=== PATIENT | female | born 1950 | race Caucasian/White ===

== ENCOUNTER → 2017-03-17 | Outpatient (CLI) | payer MEDICARE, BC ==
[2016-07-08 12:00] VITALS: BP 138/93
[~2017-03-17] MED LIST: AUBAGIO14 MG PO; B-121000 MCG PO; CALCIUM600 MG PO; CARDI-OMEGA1000 MG PO; CEFPODOXIME PR100 M1 PO; CEFPODOXIME PR100 MG PO; CELEXA 20MG20 MG/TA1 PO; CITALOPRAM HBR10 MG PO; CITALOPRAM10 MG PO; CITALOPRAM20 MG PO; CRANBERRY1000 MG PO; DITROPAN 5MG TAB5 MG PO; ESTRADIOL0.5 MG PO; FEXOFENADINE180 MG PO; GILENYA0.5 MG PO; GOOD SENSE OMEP20 MG PO; K-TAB20 MEQ PO; MIRTAZAPINE15 MG PO; MYRBETRIQ50 MG PO; NEURONTIN300 M1 PO; NEURONTIN300 MG PO; NORVASC 10MG10 MG PO; PHENERGAN25 MG RC; PREDNISONE20 M1 PO; PRELIEF333 M1 PO; TYLENOL PM EXT240 ML PO; [UNRECOGNIZED DRUG - REMARK] PO
== END ==
LOC: LAB 09:59
DX: Z51.81 Encounter for therapeutic drug level monitoring (principal); Z79.899 Other long term (current) drug therapy; G35 Multiple sclerosis

== ENCOUNTER 2017-08-22 14:00 | Outpatient (RCR) | payer MEDICARE ==
[~2017-08-22] VITALS: Ht 162.6 cm; Wt 80.9 kg
[~2017-08-22 14:00] MED LIST changes: -FEXOFENADINE180 MG PO; +WAL-FEX ALLERGY60 MG PO
[2017-08-22 14:13] VITALS: BP 134/77
[2017-08-22] MEDS ORDERED: KLOR-CON 1010 MEQ (16:46)
[2017-08-22] MEDS ORDERED: CITALOPRAM40 MG PO (16:48)
[2017-08-23 10:34] VITALS: BP 131/86
[2017-08-24 10:17] VITALS: BP 121/47
[2017-08-25 11:01] VITALS: BP 124/84
[2017-08-26 11:02] VITALS: BP 141/90
[2017-08-27 10:30] VITALS: BP 127/81
[2017-08-28 10:36] VITALS: BP 131/84
[2017-09-13] MEDS ORDERED: VESICARE5 MG PO (18:11)
[2017-09-13] MEDS ORDERED: SINEQUAN 2525 MG/CAP PO (18:11)
[2017-09-13] MEDS ORDERED: CIPRO 500MG TA500 MG PO (20:15)
[2017-09-13] MEDS ORDERED: ZOFRAN ODT4 MG PO (20:15)
== END 2017-11-20 | disposition still patient (30) ==
LOC: AMSURD
DX: N39.0 Urinary tract infection, site not specified (principal)
CPT/HCPCS: J1580

== ENCOUNTER 2017-09-13 17:27 | Emergency (ER) | payer MEDICARE ==
[~2017-09-13 17:27] MED LIST changes: +CITALOPRAM40 MG PO; +KLOR-CON 1010 MEQ
[2017-09-13] MEDS ORDERED: SINEQUAN 2525 MG/CAP PO (18:11)
[2017-09-13] MEDS ORDERED: VESICARE5 MG PO (18:11)
[2017-09-13 18:20] LABS: HEMATOCRIT 41.5 % (37.0-47.0); HEMOGLOBIN 13.1 g/dL (12.5-16.0); MEAN CELL VOLUME 78 fl (78-100); MEAN CORPUSCULAR HEMOGLOBIN 25 pg (27-31); MEAN CORPUSCULAR HGB CONC 32 g/dL (33-37); MEAN PLATELET VOLUME 9.5 fl (7.4-10.4); PLATELET COUNT 207 K/mm3 (130-400); RED BLOOD COUNT 5.29 M/mm3 (4.10-5.30); RED CELL DISTRIBUTION WIDTH 15.2 % (11.5-14.5); WHITE BLOOD COUNT 12.8 K/mm3 (4.8-10.8)
[2017-09-13 18:36] LABS: CALCIUM 8.4 mg/dL (8.4-10.2); POTASSIUM 3.5 mmol/L (3.6-5.0); TOTAL BILIRUBIN 0.7 mg/dL (0.2-1.3); TOTAL PROTEIN 7.9 g/dL (6.3-8.2)
[2017-09-13 18:48] LABS: BAND 28 % (0-10); LYMPHOCYTE 3 % (20-51); MONOCYTE 7 % (3-10); NEUTROPHILS 62 % (42-75)
[2017-09-13 18:54] LABS: URINE APPEARANCE CLOUDY; URINE BILIRUBIN NEGATIVE (NEGATIVE); URINE BLOOD 250 ery/uL (NEGATIVE); URINE COLOR YELLOW; URINE GLUCOSE NEGATIVE (NEGATIVE); URINE KETONE 3+ (NEGATIVE); URINE LEUKOCYTE ESTERASE 1+ (NEGATIVE); URINE MUCUS PRESENT (NOT PRESENT); URINE NITRATE POSITIVE (NEGATIVE); URINE PROTEIN(semi-quant) 2+ mg/dL (NEGATIVE); URINE UROBILINOGEN NORMAL (NORMAL); URINE WBC >50 /hpf (0-3)
[2017-09-13] MEDS ORDERED: CIPRO 500MG TA500 MG PO (20:15)
[2017-09-13] MEDS ORDERED: ZOFRAN ODT4 MG PO (20:15)
[2017-09-13 20:30] VITALS: BP 135/80
== END 2017-09-13 20:30 | disposition home or self-care (01) ==
LOC: ED 17:27
PROVIDERS: Family Medicine
DX: N39.0 Urinary tract infection, site not specified (principal); J10.1 Influenza due to other identified influenza virus with other respiratory manifestations; G35 Multiple sclerosis; F32.9 Major depressive disorder, single episode, unspecified
CPT/HCPCS: J1580

== ENCOUNTER → 2017-09-16 | Outpatient (CLI) | payer MEDICARE ==
[2017-09-13 20:30] VITALS: BP 135/80
[~2017-09-16] MED LIST changes: +CIPRO 500MG TA500 MG PO; +SINEQUAN 2525 MG/CAP PO; +VESICARE5 MG PO; +ZOFRAN ODT4 MG PO
[2017-09-16 11:22] LABS: ALBUMIN 3.7 g/dL (3.5-5.0); DIRECT BILIRUBIN 0.4 mg/dL (0.0-0.4); TOTAL BILIRUBIN 0.6 mg/dL (0.2-1.3); TOTAL PROTEIN 7.3 g/dL (6.3-8.2)
== END ==
LOC: LAB 10:43
PROVIDERS: Psychiatry & Neurology Neurology
DX: Z51.81 Encounter for therapeutic drug level monitoring (principal); G35 Multiple sclerosis

== ENCOUNTER 2017-09-18 14:12 | Outpatient (RCR) | payer MEDICARE, BC ==
[~2017-09-18] VITALS: Ht 162.6 cm; Wt 81.7 kg
[2017-09-18 14:15] VITALS: BP 110/57
[2017-09-18 22:00] VITALS: BP 126/83
[2017-09-18 22:35] VITALS: BP 126/69
[2017-09-19 06:31] VITALS: BP 114/74
[2017-09-19 07:30] VITALS: BP 127/58
[2017-09-19 13:50] VITALS: BP 116/72
[2017-09-19 14:35] VITALS: BP 127/72
[2017-09-19 21:42] VITALS: BP 133/66
[2017-09-19 22:30] VITALS: BP 147/84
[2017-09-20 06:12] VITALS: BP 122/70
[2017-09-20 07:20] VITALS: BP 133/77
[2017-09-20 13:49] VITALS: BP 138/80
[2017-09-20 14:20] VITALS: BP 137/79
[2017-09-20 21:40] VITALS: BP 124/79
[2017-09-20 22:10] VITALS: BP 121/74
[2017-09-21 06:25] VITALS: BP 115/75
[2017-09-21 06:59] VITALS: BP 117/74
== END 2017-09-21 21:00 | disposition home or self-care (01) ==
LOC: AMSURD 14:12
DX: N30.00 Acute cystitis without hematuria (principal); B96.20 Unspecified Escherichia coli [E. coli] as the cause of diseases classified elsewhere
CPT/HCPCS: A6402; J2543

== ENCOUNTER → 2017-11-10 | Outpatient (CLI) | payer MEDICARE ==
[2017-11-10 10:37] LABS: ALBUMIN 3.7 g/dL (3.5-5.0); DIRECT BILIRUBIN 0.1 mg/dL (0.0-0.4); TOTAL BILIRUBIN 0.3 mg/dL (0.2-1.3); TOTAL PROTEIN 7.1 g/dL (6.3-8.2)
== END ==
LOC: LAB 09:45
PROVIDERS: Psychiatry & Neurology Neurology
DX: G35 Multiple sclerosis (principal); Z51.81 Encounter for therapeutic drug level monitoring

== ENCOUNTER 2017-12-24 10:21 | Outpatient (RCR) | payer MEDICARE ==
[~2017-12-24] VITALS: Ht 162.6 cm; Wt 78.2 kg
[~2017-12-24 10:21] MED LIST changes: -CITALOPRAM40 MG PO
[2017-12-24] MEDS ORDERED: MYCOLOG CREAM 115 GM TOP (10:38)
[2017-12-24] MEDS ORDERED: MUPIROCIN CALCIUM2% TOP (10:44)
[2017-12-24] MEDS ORDERED: AUBAGIO14 MG PO (10:46)
[2017-12-24] MEDS ORDERED: PRELIEF PO (10:48)
[2017-12-24] MEDS ORDERED: VITAMIN D32000 UNI1 PO (10:51)
[2017-12-24 10:55] VITALS: BP 111/85
[2017-12-25 10:50] VITALS: BP 130/83
[2017-12-25 11:55] VITALS: BP 120/74
[2017-12-26 10:22] VITALS: BP 134/84
[2017-12-28 10:25] VITALS: BP 152/79
== END 2017-12-28 13:08 | disposition home or self-care (01) ==
LOC: AMSURD 10:21
DX: N39.0 Urinary tract infection, site not specified (principal)
CPT/HCPCS: J0696

== ENCOUNTER → 2018-06-10 | Outpatient (CLI) | payer MEDICARE ==
[~2018-06-10] MED LIST changes: +MUPIROCIN CALCIUM2% TOP; +MYCOLOG CREAM 115 GM TOP; +PRELIEF PO; +VITAMIN D32000 UNI1 PO
[2018-06-10 11:10] LABS: BASO # 0.1 (0.02-0.10); EOS # 0.5 (0.04-0.40); EOS % 5.8 % (1.0-5.0); HEMATOCRIT 44.7 % (37.0-47.0); HEMOGLOBIN 14.1 g/dL (12.5-16.0); LYMPH# 2.3 (1.50-4.00); MEAN CELL VOLUME 78 fl (78-100); MEAN CORPUSCULAR HEMOGLOBIN 25 pg (27-31); MEAN CORPUSCULAR HGB CONC 32 g/dL (33-37); MEAN PLATELET VOLUME 9.3 fl (7.4-10.4); MONO # 0.8 (0.20-0.80); NEU # 4.7 (1.40-6.50); PLATELET COUNT 251 K/mm3 (130-400); RED BLOOD COUNT 5.75 M/mm3 (4.10-5.30); RED CELL DISTRIBUTION WIDTH 16.1 % (11.5-14.5); WHITE BLOOD COUNT 8.3 K/mm3 (4.8-10.8)
[2018-06-10 11:12] LABS: ALBUMIN 4.1 g/dL (3.5-5.0); CALCIUM 9.3 mg/dL (8.4-10.2); POTASSIUM 4.3 mmol/L (3.6-5.0); TOTAL BILIRUBIN 0.5 mg/dL (0.2-1.3); TOTAL PROTEIN 7.4 g/dL (6.3-8.2)
== END ==
LOC: LAB 08:48
PROVIDERS: Psychiatry & Neurology Neurology
DX: Z51.81 Encounter for therapeutic drug level monitoring (principal); Z79.899 Other long term (current) drug therapy; G35 Multiple sclerosis; N31.9 Neuromuscular dysfunction of bladder, unspecified; E55.9 Vitamin D deficiency, unspecified

== ENCOUNTER → 2018-07-28 | Outpatient (CLI) | payer MEDICARE | LOC: LAB 09:36 | PROVIDERS: Psychiatry & Neurology Neurology | DX: R41.3 Other amnesia (principal) ==

== ENCOUNTER → 2018-09-29 | Outpatient (CLI) | payer MEDICARE ==
[2018-10-06 08:14] LABS: METHYLMALONIC ACID, SERUM 0.23 nmol/mL (<=0.40)
== END ==
LOC: LAB 10:49
PROVIDERS: Psychiatry & Neurology Neurology
DX: G35 Multiple sclerosis (principal); R26.9 Unspecified abnormalities of gait and mobility

== ENCOUNTER → 2018-11-04 | Outpatient (CLI) | payer MEDICARE | LOC: RAD 09:57 → MAMMO 11:30 → RAD 11:30 | DX: Z78.0 Asymptomatic menopausal state (principal); M81.0 Age-related osteoporosis without current pathological fracture ==

== ENCOUNTER 2018-11-19 11:00 | Outpatient (RCR) | payer MEDICARE | END 2018-11-19 11:30 | LOC: PT 11:00 | DX: G35 Multiple sclerosis (principal); Z74.09 Other reduced mobility; M62.81 Muscle weakness (generalized) ==

== ENCOUNTER → 2018-11-30 | Day surgery (SDC) | payer MEDICARE | LOC: MSO 08:06 | DX: Z12.11 Encounter for screening for malignant neoplasm of colon (principal); D12.0 Benign neoplasm of cecum; Z80.0 Family history of malignant neoplasm of digestive organs; Z90.710 Acquired absence of both cervix and uterus; Z90.721 Acquired absence of ovaries, unilateral; Z90.722 Acquired absence of ovaries, bilateral; Z90.79 Acquired absence of other genital organ(s); I10 Essential (primary) hypertension; F32.9 Major depressive disorder, single episode, unspecified; N39.0 Urinary tract infection, site not specified; Z88.6 Allergy status to analgesic agent; Z88.1 Allergy status to other antibiotic agents; Z88.2 Allergy status to sulfonamides; Z88.8 Allergy status to other drugs, medicaments and biological substances | CPT/HCPCS: 00811; J2704; J7120 ==

== ENCOUNTER 2019-01-15 11:00 | Outpatient (RCR) | payer MEDICARE | END 2019-01-15 11:30 | LOC: PT 11:00 | DX: G35 Multiple sclerosis (principal) ==

== ENCOUNTER 2019-06-02 14:56 | Emergency (ER) | payer MEDICARE ==
[2019-06-02] MEDS ORDERED: TRAMADOL 50 MG TAB PO (15:58)
[2019-06-02 16:09] VITALS: BP 145/99
== END 2019-06-02 16:10 | disposition home or self-care (01) ==
LOC: ED 14:56
DX: S22.41XA Multiple fractures of ribs, right side, initial encounter for closed fracture (principal); I10 Essential (primary) hypertension; G35 Multiple sclerosis; W07.XXXA Fall from chair, initial encounter; Y92.009 Unspecified place in unspecified non-institutional (private) residence as the place of occurrence of the external cause

== ENCOUNTER 2019-06-02 17:21 | Emergency (ER) | payer MEDICARE ==
[~2019-06-02 17:21] MED LIST changes: +TRAMADOL 50 MG TAB PO
[2019-06-02 17:42] LABS: EOS # 0.1 (0.04-0.40); EOS % 0.5 % (1.0-5.0); HEMATOCRIT 45.3 % (37.0-47.0); HEMOGLOBIN 14.6 g/dL (12.5-16.0); LYMPH# 2.5 (1.50-4.00); MEAN CELL VOLUME 83 fl (78-100); MEAN CORPUSCULAR HEMOGLOBIN 27 pg (27-31); MEAN CORPUSCULAR HGB CONC 32 g/dL (33-37); PLATELET COUNT 277 K/mm3 (130-400); RED BLOOD COUNT 5.45 M/mm3 (4.10-5.30); RED CELL DISTRIBUTION WIDTH 15.4 % (11.5-14.5); WHITE BLOOD COUNT 13.6 K/mm3 (4.8-10.8)
[2019-06-02 17:53] LABS: POTASSIUM 3.8 mmol/L (3.5-5.1)
[2019-06-02 17:54] LABS: CALCIUM 9.6 mg/dL (8.3-10.5)
[2019-06-02 17:55] LABS: TOTAL PROTEIN 7.6 g/dL (6.2-8.1)
[2019-06-02 17:57] LABS: TOTAL BILIRUBIN 0.5 mg/dL (0.2-1.2)
[2019-06-02 18:12] LABS: PARTIAL THROMBOPLASTIN TIME 22.7 SECONDS (21.0-32.0)
[2019-06-02 18:15] LABS: PROTHROMBIN TIME 10.5 SECONDS (9.0-12.0)
[2019-06-02 18:43] LABS: URINE APPEARANCE CLOUDY; URINE BILIRUBIN NEGATIVE (NEGATIVE); URINE BLOOD 50 ery/uL (NEGATIVE); URINE COLOR YELLOW; URINE GLUCOSE NEGATIVE (NEGATIVE); URINE KETONE NEGATIVE (NEGATIVE); URINE LEUKOCYTE ESTERASE 2+ (NEGATIVE); URINE NITRATE POSITIVE (NEGATIVE); URINE PROTEIN(semi-quant) 1+ mg/dL (NEGATIVE); URINE UROBILINOGEN NORMAL (NORMAL); URINE WBC >50 /hpf (0-3)
[2019-06-02 20:25] VITALS: BP 139/80
== END 2019-06-02 20:25 | disposition home or self-care (01) ==
LOC: ED 17:21
PROVIDERS: Physician Assistant
DX: S22.41XA Multiple fractures of ribs, right side, initial encounter for closed fracture (principal); S27.0XXA Traumatic pneumothorax, initial encounter; N39.0 Urinary tract infection, site not specified; I10 Essential (primary) hypertension; G35 Multiple sclerosis; V22.4XXA Motorcycle driver injured in collision with two- or three-wheeled motor vehicle in traffic accident, initial encounter; Y93.55 Activity, bike riding
CPT/HCPCS: J2270; Q9967

== ENCOUNTER 2019-06-06 14:29 | Inpatient (IN) | payer MEDICARE ==
[~2019-06-06] VITALS: Ht 162.6 cm; Wt 75.2 kg
[~2019-06-06 14:29] MED LIST changes: -CRANBERRY1000 MG PO; +Cranberry PO
[2019-06-06 19:22] VITALS: BP 113/75
[2019-06-06] MEDS ORDERED: NORVASC 10MG10 MG PO (19:36)
[2019-06-06] MEDS ORDERED: NEURONTIN600 M1 PO ×2 (19:38)
[2019-06-06] MEDS ORDERED: GOOD NEIGHBOR P1 T33 PO (19:40)
[2019-06-06] MEDS ORDERED: DOCUSATE SODIUM1 TA3 PO (19:42)
[2019-06-06] MEDS ORDERED: LIDOCAINE1 EACH TOP (19:44)
[2019-06-06] MEDS ORDERED: KEPPRA 500MG500 MG PO (19:50)
[2019-06-06] MEDS ORDERED: BACLOFEN20 MG PO (21:52)
[2019-06-06] MEDS ORDERED: PRELIEF PO (21:53)
[2019-06-07 06:27] VITALS: BP 113/71
[2019-06-07 08:42] LABS: EOS # 0.6 (0.04-0.40); EOS % 6.8 % (1.0-5.0); HEMOGLOBIN 13.6 g/dL (12.5-16.0); LYMPH# 2.1 (1.50-4.00); MEAN CELL VOLUME 83 fl (78-100); MEAN CORPUSCULAR HEMOGLOBIN 27 pg (27-31); MEAN CORPUSCULAR HGB CONC 32 g/dL (33-37); MEAN PLATELET VOLUME 9.5 fl (7.4-10.4); MONO # 0.6 (0.20-0.80); NEU # 5.9 (1.40-6.50); PLATELET COUNT 274 K/mm3 (130-400); RED BLOOD COUNT 5.04 M/mm3 (4.10-5.30); RED CELL DISTRIBUTION WIDTH 14.9 % (11.5-14.5); WHITE BLOOD COUNT 9.4 K/mm3 (4.8-10.8)
[2019-06-07 08:43] LABS: ALBUMIN 3.3 g/dL (3.4-4.8); POTASSIUM 3.9 mmol/L (3.5-5.1)
[2019-06-07 08:46] LABS: TOTAL PROTEIN 6.8 g/dL (6.2-8.1)
[2019-06-07 08:47] LABS: TOTAL BILIRUBIN 0.4 mg/dL (0.2-1.2)
[2019-06-07 18:51] VITALS: BP 114/73
[2019-06-08 06:27] VITALS: BP 111/68
[2019-06-09 06:02] VITALS: BP 133/83
[2019-06-09 16:48] LABS: PH-URINE 7.5 (5.0 - 8.0); URINE APPEARANCE CLOUDY; URINE BILIRUBIN NEGATIVE (NEGATIVE); URINE BLOOD TRACE (NEGATIVE); URINE COLOR YELLOW; URINE GLUCOSE NEGATIVE (NEGATIVE); URINE KETONE NEGATIVE (NEGATIVE); URINE LEUKOCYTE ESTERASE 2+ (NEGATIVE); URINE NITRATE POSITIVE (NEGATIVE); URINE PROTEIN(semi-quant) 1+ mg/dL (NEGATIVE); URINE UROBILINOGEN NORMAL (NORMAL); URINE WBC 16-30 /hpf (0-3)
[2019-06-09 16:49] LABS: URINE MUCUS PRESENT (NOT PRESENT)
[2019-06-09 18:00] VITALS: BP 112/74
[2019-06-09 19:47] LABS: URINE COLOR YELLOW
[2019-06-09 19:48] LABS: URINE APPEARANCE HAZY; URINE BILIRUBIN NEGATIVE (NEGATIVE); URINE BLOOD 50 ery/uL (NEGATIVE); URINE GLUCOSE NEGATIVE (NEGATIVE); URINE KETONE NEGATIVE (NEGATIVE); URINE NITRATE POSITIVE (NEGATIVE); URINE PROTEIN(semi-quant) TRACE mg/dL (NEGATIVE); URINE UROBILINOGEN NORMAL (NORMAL)
[2019-06-09 19:49] LABS: URINE LEUKOCYTE ESTERASE 2+ (NEGATIVE); URINE WBC 31-50 /hpf (0-3)
[2019-06-09 19:50] LABS: URINE MUCUS PRESENT (NOT PRESENT)
[2019-06-10 06:20] VITALS: BP 146/80
[2019-06-10 18:28] VITALS: BP 126/82
[2019-06-11 07:16] VITALS: BP 127/69
[2019-06-11 18:32] VITALS: BP 138/78
[2019-06-12 06:23] VITALS: BP 127/72
[2019-06-12 18:09] VITALS: BP 121/71
[2019-06-13 06:05] VITALS: BP 120/77
[2019-06-13 17:45] VITALS: BP 127/77
[2019-06-14 06:09] VITALS: BP 152/80
[2019-06-14] MEDS ORDERED: ULTRAM50 M1 PO (12:41)
== END 2019-06-14 12:43 | disposition home health service (06) | DRG 561 ==
LOC: MED/SURG 14:29
PROVIDERS: Nurse Practitioner Primary Care; Physician Assistant; ADMIT Family Medicine
DX: S22.41XD Multiple fractures of ribs, right side, subsequent encounter for fracture with routine healing (principal); W19.XXXD Unspecified fall, subsequent encounter; R53.81 Other malaise; G35 Multiple sclerosis; I10 Essential (primary) hypertension; K21.9 Gastro-esophageal reflux disease without esophagitis; R26.9 Unspecified abnormalities of gait and mobility; Z99.3 Dependence on wheelchair; Z88.5 Allergy status to narcotic agent
CPT/HCPCS: J1650

== ENCOUNTER → 2019-07-07 | Outpatient (CLI) | payer MEDICARE ==
[2019-06-14 06:09] VITALS: BP 152/80
[~2019-07-07] MED LIST changes: +BACLOFEN20 MG PO; +DOCUSATE SODIUM1 TA3 PO; +GOOD NEIGHBOR P1 T33 PO; +KEPPRA 500MG500 MG PO; +LIDOCAINE1 EACH TOP; +NEURONTIN600 M1 PO; +ULTRAM50 M1 PO
== END ==
LOC: RAD 08:56
DX: S22.41XA Multiple fractures of ribs, right side, initial encounter for closed fracture (principal)

== ENCOUNTER 2019-10-14 12:39 | Outpatient (RCR) | payer MEDICARE ==
[2019-08-13 10:10] VITALS: BP 143/78
--- NOTE | 2019-08-13 11:04 | NUR ---
PT COMES FOR OUTPATIENT VISIT TO HAVE SUPRAPUBIC CATHETER CHANGED. THE CURRENTLY INSERTED CATHETER IS REMOVED BY HAVING THE 10CC BALLOON DEFLATED AND REMOVING THE CATHETER ALONG WITH THE STATLOCK. A NEW 20FR SUPRAPUBIC CATHETER IS PLACED INTO THE SITE. STERILE TECHNIQUE WAS MAINTAINED THROUGHOUT THE PROCEDURE. PT TOLERATES PROCEDURE WELL.
[2019-09-13 11:25] VITALS: BP 132/64
[~2019-10-14] VITALS: Ht 162.6 cm; Wt 75.2 kg
[2019-10-14 13:31] VITALS: BP 157/78
== END 2019-11-11 | disposition still patient (30) ==
LOC: AMSURD
DX: N31.2 Flaccid neuropathic bladder, not elsewhere classified (principal)

== ENCOUNTER 2020-01-12 14:56 | Outpatient (RCR) | payer MEDICARE ==
[2019-11-12 10:45] VITALS: BP 145/71
[2019-12-13 14:00] VITALS: BP 140/80
[~2020-01-12] VITALS: Ht 162.6 cm; Wt 75.2 kg
[2020-01-12 15:26] VITALS: BP 151/85
== END 2020-02-10 | disposition still patient (30) ==
LOC: AMSURD
DX: N31.2 Flaccid neuropathic bladder, not elsewhere classified (principal)

== ENCOUNTER 2020-04-14 09:57 | Outpatient (RCR) | payer MEDICARE ==
[2020-02-12 11:10] VITALS: BP 146/52
[2020-03-13 16:24] VITALS: BP 147/66
[~2020-04-14] VITALS: Ht 162.6 cm; Wt 75.2 kg
== END 2020-05-12 | disposition home or self-care (01) ==
LOC: AMSURD
DX: N31.2 Flaccid neuropathic bladder, not elsewhere classified (principal)

== ENCOUNTER 2020-05-15 10:25 | Outpatient (RCR) | payer MEDICARE ==
[~2020-05-15] VITALS: Ht 162.6 cm; Wt 75.2 kg
[2020-05-15 10:30] VITALS: BP 147/80
== END 2020-05-15 10:45 | disposition still patient (30) ==
LOC: AMSURD 10:25
DX: N31.2 Flaccid neuropathic bladder, not elsewhere classified (principal)

== ENCOUNTER 2020-07-14 15:34 | Outpatient (RCR) | payer MEDICARE ==
[2020-06-12 11:10] VITALS: BP 166/87
[~2020-07-14] VITALS: Ht 162.6 cm; Wt 75.2 kg
[2020-07-14 15:57] VITALS: BP 158/64
== END 2020-09-04 ==
LOC: AMSURD
DX: N31.2 Flaccid neuropathic bladder, not elsewhere classified (principal)

== ENCOUNTER → 2020-07-21 | Outpatient (CLI) | payer MEDICARE ==
[2020-07-14 15:57] VITALS: BP 158/64
== END ==
LOC: RAD 08:55
DX: N30.20 Other chronic cystitis without hematuria (principal); N31.2 Flaccid neuropathic bladder, not elsewhere classified; N39.42 Incontinence without sensory awareness

== ENCOUNTER → 2020-08-14 | Outpatient (CLI) | payer MEDICARE ==
[2020-08-14 12:23] LABS: EOS # 0.5 (0.04-0.40); EOS % 5.2 % (1.0-5.0); HEMOGLOBIN 13.6 g/dL (12.5-16.0); LYMPH# 2.4 (1.50-4.00); MEAN CELL VOLUME 82 fl (78-100); MEAN CORPUSCULAR HEMOGLOBIN 26 pg (27-31); MEAN CORPUSCULAR HGB CONC 32 g/dL (33-37); MEAN PLATELET VOLUME 9.3 fl (7.4-10.4); MONO # 0.8 (0.20-0.80); NEU # 5.5 (1.40-6.50); PLATELET COUNT 354 K/mm3 (130-400); RED BLOOD COUNT 5.25 M/mm3 (4.10-5.30); RED CELL DISTRIBUTION WIDTH 16.1 % (11.5-14.5); WHITE BLOOD COUNT 9.2 K/mm3 (4.8-10.8)
[2020-08-14 12:34] LABS: POTASSIUM 4.2 mmol/L (3.5-5.1)
[2020-08-14 12:35] LABS: CALCIUM 9.5 mg/dL (8.3-10.5)
[2020-08-14 12:38] LABS: TOTAL BILIRUBIN 0.2 mg/dL (0.2-1.2)
== END ==
LOC: LAB 12:10
PROVIDERS: Family Medicine
DX: Z00.00 Encounter for general adult medical examination without abnormal findings (principal); I10 Essential (primary) hypertension; E55.9 Vitamin D deficiency, unspecified

== ENCOUNTER → 2020-08-28 | Outpatient (CLI) | payer MEDICARE | LOC: RAD 10:52 | DX: G31.9 Degenerative disease of nervous system, unspecified (principal) ==

== ENCOUNTER 2020-10-09 09:58 | Outpatient (RCR) | payer MEDICARE ==
[2020-09-18 13:54] VITALS: BP 117/74
== END 2020-11-06 16:30 | disposition home or self-care (01) ==
LOC: PT 09:58
DX: G35 Multiple sclerosis (principal)

== ENCOUNTER 2020-12-15 09:23 | Outpatient (RCR) | payer MEDICARE ==
[2020-09-18 13:54] VITALS: BP 117/74
[2020-12-15 09:38] VITALS: BP 121/68
== END 2020-12-17 | disposition home or self-care (01) ==
LOC: AMSURD
DX: N31.2 Flaccid neuropathic bladder, not elsewhere classified (principal)

== ENCOUNTER → 2021-03-09 | Outpatient (CLI) | payer MEDICARE ==
[2021-03-09 10:40] LABS: BASO # 0.02 (0.02-0.10); EOS # 0.52 (0.04-0.40); EOS % 5.5 % (1.0-5.0); HEMATOCRIT 44.2 % (37.0-47.0); HEMOGLOBIN 14.1 g/dL (12.5-16.0); LYMPH# 2.79 (1.50-4.00); MEAN CELL VOLUME 81 fl (78-100); MEAN CORPUSCULAR HEMOGLOBIN 26 pg (27-31); MEAN CORPUSCULAR HGB CONC 32 g/dL (33-37); MEAN PLATELET VOLUME 9.2 fl (7.4-10.4); MONO # 0.62 (0.20-0.80); NEU # 5.55 (1.40-6.50); PLATELET COUNT 335 K/mm3 (130-400); RED BLOOD COUNT 5.49 M/mm3 (4.10-5.30); RED CELL DISTRIBUTION WIDTH 16.1 % (11.5-14.5); WHITE BLOOD COUNT 9.5 K/mm3 (4.8-10.8)
[2021-03-09 10:47] LABS: ALBUMIN 3.9 g/dL (3.4-4.8)
[2021-03-09 10:48] LABS: CALCIUM 9.2 mg/dL (8.3-10.5)
[2021-03-09 10:49] LABS: TOTAL PROTEIN 8.1 g/dL (6.2-8.1)
[2021-03-09 10:51] LABS: TOTAL BILIRUBIN 0.4 mg/dL (0.2-1.2)
== END ==
LOC: LAB 09:53
PROVIDERS: Family Medicine
DX: Z00.00 Encounter for general adult medical examination without abnormal findings (principal); M81.0 Age-related osteoporosis without current pathological fracture; E78.5 Hyperlipidemia, unspecified

== ENCOUNTER 2021-03-14 10:47 | Outpatient (RCR) | payer MEDICARE ==
[2021-01-12 11:30] VITALS: BP 151/79
--- NOTE | 2021-01-12 11:30 | NUR ---
Pt here for a suprapubic catheter change. Pt brought most of her own supplies.
[2021-02-14 10:15] VITALS: BP 134/73
[~2021-03-14] VITALS: Ht 162.6 cm; Wt 75.2 kg
[2021-03-14 10:52] VITALS: BP 143/76
== END 2021-04-12 | disposition still patient (30) ==
LOC: AMSURD
DX: N31.2 Flaccid neuropathic bladder, not elsewhere classified (principal)

== ENCOUNTER → 2021-03-27 | Outpatient (CLI) | payer MEDICARE | LOC: LAB 14:00 | DX: Z20.822 Contact with and (suspected) exposure to COVID-19 (principal) ==

== ENCOUNTER → 2021-05-16 | Outpatient (CLI) | payer MEDICARE ==
[~2021-05-16] VITALS: Ht 162.6 cm; Wt 75.2 kg
[2021-05-16 11:00] VITALS: BP 129/73
== END ==
LOC: AMSURD 10:54
DX: N31.2 Flaccid neuropathic bladder, not elsewhere classified (principal)

== ENCOUNTER → 2021-05-24 | Outpatient (CLI) | payer MEDICARE ==
[2021-05-24 14:32] LABS: BASO # 0.03 (0.02-0.10); EOS # 0.51 (0.04-0.40); EOS % 5.1 % (1.0-5.0); HEMATOCRIT 43.3 % (37.0-47.0); HEMOGLOBIN 13.8 g/dL (12.5-16.0); LYMPH# 3.62 (1.50-4.00); MEAN CELL VOLUME 84 fl (78-100); MEAN CORPUSCULAR HEMOGLOBIN 27 pg (27-31); MEAN CORPUSCULAR HGB CONC 32 g/dL (33-37); MEAN PLATELET VOLUME 9.7 fl (7.4-10.4); MONO # 0.75 (0.20-0.80); NEU # 5.07 (1.40-6.50); PLATELET COUNT 315 K/mm3 (130-400); RED BLOOD COUNT 5.17 M/mm3 (4.10-5.30); RED CELL DISTRIBUTION WIDTH 14.7 % (11.5-14.5)
[2021-05-24 16:21] LABS: ALBUMIN 3.6 g/dL (3.4-4.8); POTASSIUM 3.6 mmol/L (3.5-5.1)
[2021-05-24 16:22] LABS: CALCIUM 9.5 mg/dL (8.3-10.5)
[2021-05-24 16:23] LABS: TOTAL PROTEIN 7.6 g/dL (6.2-8.1)
[2021-05-24 16:25] LABS: TOTAL BILIRUBIN 0.3 mg/dL (0.2-1.2)
== END ==
LOC: LAB 13:18
PROVIDERS: Psychiatry & Neurology Neurology
DX: G35 Multiple sclerosis (principal); E55.9 Vitamin D deficiency, unspecified

== ENCOUNTER 2021-07-16 10:55 | Outpatient (RCR) | payer MEDICARE ==
[2021-04-18 11:22] VITALS: BP 131/72
[2021-06-15 10:41] VITALS: BP 125/64
[~2021-07-16] VITALS: Ht 162.6 cm; Wt 75.2 kg
[2021-07-16 13:29] VITALS: BP 144/83
== END 2021-07-17 ==
LOC: AMSURD
DX: N31.2 Flaccid neuropathic bladder, not elsewhere classified (principal)

== ENCOUNTER 2021-08-16 10:46 | Outpatient (RCR) | payer MEDICARE ==
[~2021-08-16] VITALS: Ht 162.6 cm; Wt 75.2 kg
[2021-08-16 11:23] VITALS: BP 146/78
== END 2021-08-31 12:08 | disposition home or self-care (01) ==
LOC: AMSURD 10:46
DX: N31.2 Flaccid neuropathic bladder, not elsewhere classified (principal)

== ENCOUNTER 2021-09-13 10:59 | Outpatient (RCR) | payer MEDICARE ==
[~2021-09-13] VITALS: Ht 162.6 cm; Wt 75.2 kg
[2021-09-13 11:10] VITALS: BP 128/74
== END 2021-10-01 | disposition still patient (30) ==
LOC: AMSURD
DX: N31.2 Flaccid neuropathic bladder, not elsewhere classified (principal)

== ENCOUNTER → 2021-10-17 | Outpatient (CLI) | payer MEDICARE ==
[~2021-10-17] VITALS: Ht 162.6 cm; Wt 75.2 kg
[2021-10-17 11:25] VITALS: BP 127/81
== END ==
LOC: AMSURD 10:59
DX: N31.2 Flaccid neuropathic bladder, not elsewhere classified (principal)

== ENCOUNTER → 2021-11-12 | Outpatient (CLI) | payer MEDICARE ==
[~2021-11-12] VITALS: Ht 162.6 cm; Wt 75.2 kg
[2021-11-12 11:55] VITALS: BP 146/84
== END ==
LOC: AMSURD 10:54
DX: N31.2 Flaccid neuropathic bladder, not elsewhere classified (principal)

== ENCOUNTER → 2021-12-12 | Outpatient (CLI) | payer MEDICARE ==
[~2021-12-12] VITALS: Ht 162.6 cm; Wt 75.2 kg
[2021-12-12 10:30] VITALS: BP 148/79
== END ==
LOC: AMSURD 10:20
DX: N31.2 Flaccid neuropathic bladder, not elsewhere classified (principal)

== ENCOUNTER → 2021-12-12 | Outpatient (CLI) | payer MEDICARE | LOC: LAB 13:47 | DX: N30.20 Other chronic cystitis without hematuria (principal); N31.2 Flaccid neuropathic bladder, not elsewhere classified ==

== ENCOUNTER → 2022-01-11 | Outpatient (CLI) | payer MEDICARE ==
[~2022-01-11] VITALS: Ht 162.6 cm; Wt 75.2 kg
== END ==
LOC: AMSURD 10:39
DX: N31.2 Flaccid neuropathic bladder, not elsewhere classified (principal)

== ENCOUNTER → 2023-08-01 | Outpatient (CLI) | payer MEDICARE ==
[2023-08-01 10:56] LABS: CALCIUM 9.5 mg/dL (8.3-10.5)
== END ==
LOC: LAB 10:32
PROVIDERS: Internal Medicine Pulmonary Disease
DX: R93.89 Abnormal findings on diagnostic imaging of other specified body structures (principal)

== ENCOUNTER → 2023-10-23 | Outpatient (REF) | payer MEDICARE | LOC: LAB 15:44 | DX: U07.1 COVID-19 (principal) ==

== ENCOUNTER → 2024-02-10 | Outpatient (CLI) | payer MEDICARE ==
[2024-02-10 15:43] LABS: BASO # 0.04 K/mm3 (0.02-0.10); EOS # 0.44 K/mm3 (0.04-0.40); EOS % 4.6 % (1.0-5.0); HEMATOCRIT 42.1 % (37.0-47.0); HEMOGLOBIN 13.4 g/dL (12.5-16.0); LYMPH# 3.61 K/mm3 (1.50-4.00); MEAN CELL VOLUME 88 fl (78-100); MEAN CORPUSCULAR HEMOGLOBIN 28 pg (27-31); MEAN CORPUSCULAR HGB CONC 32 g/dL (33-37); MONO # 0.71 K/mm3 (0.20-0.80); NEU # 4.85 K/mm3 (1.40-6.50); PLATELET COUNT 297 K/mm3 (130-400); RED BLOOD COUNT 4.81 M/mm3 (4.10-5.30); RED CELL DISTRIBUTION WIDTH 14.4 % (11.5-14.5); WHITE BLOOD COUNT 9.7 K/mm3 (4.8-10.8)
[2024-02-10 15:51] LABS: ALBUMIN 3.6 g/dL (3.4-4.8)
[2024-02-10 15:52] LABS: CALCIUM 9.4 mg/dL (8.3-10.5)
[2024-02-10 15:55] LABS: TOTAL BILIRUBIN 0.2 mg/dL (0.2-1.2)
[2024-02-17 10:42] LABS: HEPATITIS C VIRUS ANTIBODY NON REACTIVE
== END ==
LOC: LAB 15:32
PROVIDERS: Family Medicine
DX: Z11.59 Encounter for screening for other viral diseases (principal); I10 Essential (primary) hypertension; M81.0 Age-related osteoporosis without current pathological fracture; E78.5 Hyperlipidemia, unspecified

== ENCOUNTER → 2024-05-19 | Outpatient (CLI) | payer MEDICARE | LOC: RAD 09:55 | DX: M81.0 Age-related osteoporosis without current pathological fracture (principal) ==

== ENCOUNTER → 2024-07-20 | Outpatient (CLI) | payer MEDICARE ==
[~2024-07-20] VITALS: Ht 162.6 cm; Wt 75.2 kg
[~2024-07-20] MED LIST changes: +FEXOFENADINE H180 M1 PO; +FOSFOMYCIN TROME3 GM PO; -GOOD SENSE OMEP20 MG PO; +Lidocaine 2% Jelly 5 GM TUBE TOP ONE; +MACROBID 100 M100 MG PO; +MUPIROCIN2% TP; +OMEPRAZOLE40 MG PO; +PREDNISONE10 MG PO; +PROAIR DIGIHAL90 MCG IH
[2024-07-20 10:11] VITALS: BP 144/78
== END ==
LOC: WOUND 09:43
DX: T14.8XXA Other injury of unspecified body region, initial encounter (principal)
CPT/HCPCS: 18897; 19064; A6261

== ENCOUNTER → 2024-07-23 | Outpatient (CLI) | payer MEDICARE ==
[~2024-07-23] VITALS: Ht 162.6 cm; Wt 75.2 kg
[2024-07-23 09:54] VITALS: BP 140/84
== END ==
LOC: WOUND 08:51
DX: T14.8XXA Other injury of unspecified body region, initial encounter (principal)
CPT/HCPCS: 18893; 18895; A6021; A6197

== ENCOUNTER → 2024-07-27 | Outpatient (CLI) | payer MEDICARE ==
[~2024-07-27] VITALS: Ht 162.6 cm; Wt 75.2 kg
[2024-07-27 09:10] VITALS: BP 127/66
== END ==
LOC: WOUND 08:48
DX: T14.8XXA Other injury of unspecified body region, initial encounter (principal)
CPT/HCPCS: 18893; 18895; A6021; A6197

== ENCOUNTER → 2024-07-30 | Outpatient (CLI) | payer MEDICARE ==
[~2024-07-30] VITALS: Ht 162.6 cm; Wt 75.2 kg
[2024-07-30 09:10] VITALS: BP 134/85
== END ==
LOC: WOUND 08:48
DX: T14.8XXA Other injury of unspecified body region, initial encounter (principal)

== ENCOUNTER → 2024-08-26 | Outpatient (CLI) | payer MEDICARE ==
[~2024-08-26] MED LIST changes: +Gadoterate 20 ML VIAL IV ONE; -Lidocaine 2% Jelly 5 GM TUBE TOP ONE
== END ==
LOC: RAD 09:21
DX: G35 Multiple sclerosis (principal); R90.82 White matter disease, unspecified
CPT/HCPCS: A9575

== ENCOUNTER → 2024-09-10 | Outpatient (CLI) | payer MEDICARE ==
[~2024-09-10] VITALS: Ht 162.6 cm; Wt 75.0 kg
[~2024-09-10] MED LIST changes: +DOXYCYCLINE HY100 M5 PO; -Gadoterate 20 ML VIAL IV ONE; +Lidocaine 2% Jelly 5 GM TUBE TOP PRN
[2024-09-10 13:09] VITALS: BP 145/78
--- NOTE | 2024-09-10 14:00 | NUR ---
PT HERE FOR WOUND CARE TO RT HEEL BLISTER NOTED 1 WEEK AGO. PT AND FAMILY STATE PT'S MS HAS WORSENED AND SHE IS NO LONGER ABLE TO BEAR WEIGHT OR HELP WITH TRANSFERRING TO BED AND CHAIR. PT DENIES PAIN AT SITE. STATES SHE THINKS IT STARTED WHEN SHE STRUCK HER FOOT ON HER ELECTRIC WHEELCHAIR. WOUND IS PURPLE IN COLOR WITH ERRYTHEMA AND WARMTH NOTED AROUND EDGES OF WOUND. BLISTER WAS DEROOFED BY Scout CAREY APRN AND FLUID WAS CULTURED. TISSUE UNDER BLISTER WAS FOUND TO BE VERY WET AND "SOGGY". CLEANED WITH HIBICLENS AND DEBRISOFT LOLLY PRIOR TO OPENING THE BLISTER. SKIN PREP APPLIED AROUND EDGES. MEPITEL AG PLACED IN THE WOUND BED AND COVERED WITH PLAIN MEPITEL, ABD AND SOFT ROLL GAUZE. STARTED PT ON DOXYCYCLINE. wOUNDS ON POSTERIOR LEFT CALF ARE SCABBED OVER AND NOT DRAINING. COVERED WITH MEPILEX BORDER FOAM. PT'S FAMILY WILL CHANGE THE ABD DRESSING AND GAUZE ROLL NEEDED AND RETURN TO WOUND CLINIC ON FRIDAY.PICTURES AND MEASUREMENTS TAKEN. SEE PROVIDER NOTE FROM Scout CAREY APRN
--- NOTE | 2024-09-10 16:59 | NUR ---
SEE PROVIDER NOTE FROM Scout CAREY APRN
--- NOTE | 2024-09-13 10:07 | NUR ---
WOUND CULTURE PRELIM GIVEN TO LAN CAREY APRN.
== END ==
LOC: LAB 12:49 → WOUND 12:49
DX: S90.822A Blister (nonthermal), left foot, initial encounter (principal)
CPT/HCPCS: A6207

== ENCOUNTER → 2024-09-14 | Outpatient (CLI) | payer MEDICARE ==
[~2024-09-14] VITALS: Ht 162.6 cm; Wt 75.0 kg
[~2024-09-14] MED LIST changes: -Lidocaine 2% Jelly 5 GM TUBE TOP PRN
[2024-09-14 14:18] VITALS: BP 135/81
--- NOTE | 2024-09-14 14:23 | NUR ---
PATIENT HERE FOR WOUND CARE TO LEFT HEEL. SON REPORTS DRESSING WAS REPLACED LAST NIGHT. Scout CAREY APRN DEBRIDED WOUND WTH 5MM CURETTE, CLEANSED WITH HIBICLENSE AND DEBRISOFT LOLLI. JET LAVAGE. MEPITEL AG AND MEPITEL PLACED OVER WOUND BED. RESCHEDULED FOR Friday09/17/24 AT 2PM.
--- NOTE | 2024-09-14 14:37 | NUR ---
PATIENT HERE FOR WOUND CARE TO LEFT HEEL. PATIENT SON REPORTS REPLACING DRESSING LAST NIGHT. Scout CAREY DEBRIDED WOUND WITH 5MM CURETTE, CLEASNED WITH HIBICLENSE AND DEBRISOFT LOLLI. NORMAGEL PLACED IN WOUND BED. COVERED WITH AQUACEL AG AND MEPILEX BORDER FOAM. NO GROWTH ON WOUND CULTURE. Scout CAREY APRN AWARE WELL PATIENT AND FAMILY. SUPPLIES SENT WITH PATIENT TO REPLACE IF SOILED. PATIENT SCHEDULED FOR 09/17/24Friday AT 2PM.
== END ==
LOC: WOUND 13:44
DX: T14.8XXA Other injury of unspecified body region, initial encounter (principal)
CPT/HCPCS: 18886; 18897; 19899; A6248

== ENCOUNTER → 2024-09-17 | Outpatient (CLI) | payer MEDICARE ==
[~2024-09-17] VITALS: Ht 162.6 cm; Wt 75.0 kg
[~2024-09-17] MED LIST changes: +Lidocaine 2% Jelly 5 GM TUBE TOP ONE
[2024-09-17 14:19] VITALS: BP 128/78
== END ==
LOC: WOUND 14:04
DX: S90.822A Blister (nonthermal), left foot, initial encounter (principal)
CPT/HCPCS: 18886; A6248

== ENCOUNTER → 2024-09-22 | Outpatient (CLI) | payer MEDICARE ==
[~2024-09-22] VITALS: Ht 162.6 cm; Wt 75.0 kg
[~2024-09-22] MED LIST changes: -Lidocaine 2% Jelly 5 GM TUBE TOP ONE
[2024-09-22 15:05] VITALS: BP 144/64
--- NOTE | 2024-09-22 15:29 | NUR ---
PT HERE FOR WOUND CARE TO LEFT HEEL. Scout CAREY APRN IN TO DEBRIDE WOUND WITH 3MM CURETTE. PT CHIOMA WELL. NO LIDOCAINE NEEDED. MEASUREMENTS AND PICTURES TAKEN TODAY. SEE PROVIDER NOTE. CLEANED WOUND WITH HIBICLENS AND DEBRISOFT LOLLY. IRRIGATED WITH STERILE WATER. PATTED DRY WITH 4X4'S. NORMLGEL APPLIED TO WOUND BED, COVERED WITH AQUACEL EXTRA AND MEPILEX BORDER FOAM. ASSISTED PT OFF THE COT AND BACK INTO W/C. PT'S FAMILY WILL CHANGE DRESSING ON FRIDAY OR FRIDAY AND AGAIN ON FRI OR . SUPPLIES SENT WITH SPOUSE. WILL RETURN ON 09/29 TO WOUND CLINIC.
== END ==
LOC: WOUND 14:42
DX: T14.8XXA Other injury of unspecified body region, initial encounter (principal)
CPT/HCPCS: 18897; 19899

== ENCOUNTER 2024-09-26 10:49 | Emergency (ER) | payer MEDICARE ==
[~2024-09-26] VITALS: Ht 160 cm; Wt 75.0 kg
[2024-09-26 11:08] LABS: HEMATOCRIT 46.1 % (37.0-47.0); HEMOGLOBIN 14.1 g/dL (12.5-16.0); MEAN CELL VOLUME 85 fl (78-100); MEAN CORPUSCULAR HEMOGLOBIN 26 pg (27-31); MEAN CORPUSCULAR HGB CONC 31 g/dL (33-37); MEAN PLATELET VOLUME 9.8 fl (7.4-10.4); PLATELET COUNT 224 K/mm3 (130-400); RED CELL DISTRIBUTION WIDTH 13.2 % (11.5-14.5); WHITE BLOOD COUNT 18.7 K/mm3 (4.8-10.8)
[2024-09-26 11:16] LABS: ALBUMIN 3.8 g/dL (3.4-4.8)
[2024-09-26 11:18] LABS: CALCIUM 9.4 mg/dL (8.3-10.5)
[2024-09-26 11:20] LABS: BAND 3 % (0-10); LYMPHOCYTE 16 % (20-51); MONOCYTE 10 % (3-10); NEUTROPHILS 71 % (42-75)
[2024-09-26 11:21] LABS: TOTAL BILIRUBIN 0.8 mg/dL (0.2-1.2)
[2024-09-26] MEDS ORDERED: Amoxicillin/Clavulanate K+ 875/125 MG TAB PO ONE (12:00)
[2024-09-26 12:30] LABS: D-DIMER 3.47 mg/L FEU (0.15-0.50)
[2024-09-26 13:09] VITALS: BP 148/60
[2024-09-26 14:41] LABS: PH-URINE 5.5 (5.0 - 8.0); URINE APPEARANCE CLOUDY (CLEAR); URINE COLOR YELLOW (YELLOW); URINE PROTEIN(semi-quant) 1+ (NEGATIVE)
[2024-09-26 14:42] LABS: URINE BILIRUBIN NEGATIVE (NEGATIVE); URINE BLOOD 2+ (NEGATIVE); URINE GLUCOSE NEGATIVE (NEGATIVE); URINE KETONE 1+ (NEGATIVE); URINE LEUKOCYTE ESTERASE 1+ (NEGATIVE); URINE MUCUS PRESENT (NOT PRESENT); URINE NITRATE POSITIVE (NEGATIVE); URINE WBC >50 /hpf (0-3)
== END 2024-09-26 13:00 | disposition other institution (70) ==
LOC: ED 10:49
PROVIDERS: Family Medicine; Nurse Practitioner
DX: L03.116 Cellulitis of left lower limb (principal); R74.01 Elevation of levels of liver transaminase levels; R53.1 Weakness
CPT/HCPCS: J3370; J7050

== ENCOUNTER 2024-09-26 13:00 | Inpatient (IN) | payer MEDICARE ==
[~2024-09-26] VITALS: Ht 162.6 cm; Wt 74.9 kg
[2024-09-26 13:00] VITALS: BP 133/79
[2024-09-26] MEDS ORDERED: Acetaminophen 325 MG TAB PO PRN (13:30)
[2024-09-26] MEDS ORDERED: NS 1,000 ML IV SCH (13:30)
[2024-09-26] MEDS ORDERED: Amoxicillin/Clavulanate K+ 875/125 MG TAB PO SCH ×2 (17:00→21:00)
[2024-09-26] MEDS ORDERED: Sennosides/Docusate 8.6-50 MG TAB PO PRN (18:00)
[2024-09-26 19:00] VITALS: BP 108/60
[2024-09-26] MEDS ORDERED: Doxepin 25 MG CAP PO SCH (21:00)
[2024-09-26] MEDS ORDERED: Gabapentin 300 MG CAP PO SCH (21:00)
[2024-09-26] MEDS ORDERED: levETIRAcetam 500 MG TAB PO SCH (21:00)
[2024-09-26 23:00] VITALS: BP 105/56
[2024-09-27] MEDS ORDERED: Vancomycin 1 G in NS 250 ML IV SCH
[2024-09-27 03:00] VITALS: BP 122/73
[2024-09-27 06:13] LABS: CALCIUM 8.5 mg/dL (8.3-10.5)
[2024-09-27 06:14] LABS: TOTAL PROTEIN 6.5 g/dL (6.2-8.1)
[2024-09-27 06:16] LABS: TOTAL BILIRUBIN 0.7 mg/dL (0.2-1.2)
[2024-09-27 07:41] VITALS: BP 119/67
[2024-09-27] MEDS ORDERED: Citalopram 20 MG TAB PO SCH (09:00)
[2024-09-27] MEDS ORDERED: amLODIPine 5 MG TAB PO SCH (09:00)
[2024-09-27] MEDS ORDERED: Gabapentin 300 MG CAP PO SCH (09:00)
[2024-09-27 09:12] LABS: HEMATOCRIT 36.7 % (37.0-47.0); HEMOGLOBIN 11.3 g/dL (12.5-16.0); MEAN CELL VOLUME 86 fl (78-100); MEAN CORPUSCULAR HEMOGLOBIN 27 pg (27-31); MEAN CORPUSCULAR HGB CONC 31 g/dL (33-37); MEAN PLATELET VOLUME 11.3 fl (7.4-10.4); PLATELET COUNT 196 K/mm3 (130-400); RED BLOOD COUNT 4.27 M/mm3 (4.10-5.30); RED CELL DISTRIBUTION WIDTH 13.3 % (11.5-14.5)
[2024-09-27 10:01] LABS: LYMPHOCYTE 14 % (20-51); MONOCYTE 6 % (3-10); NEUTROPHILS 80 % (42-75)
[2024-09-27 11:14] VITALS: BP 104/62
[2024-09-27 15:31] VITALS: BP 119/68
[2024-09-27] MEDS ORDERED: Piperacillin/Tazobactam Sodium 4.5 GM in NS 100 ML IV ONE (18:30)
[2024-09-27 19:25] VITALS: BP 103/64
[2024-09-27 22:49] VITALS: BP 104/66
[2024-09-28] MEDS ORDERED: Piperacillin/Tazobactam Sodium 3.375 GM in NS 100 ML IV SCH (00:01)
[2024-09-28 02:48] VITALS: BP 104/66
[2024-09-28 05:51] LABS: BASO # 0.03 K/mm3 (0.02-0.10); EOS % 0.7 % (1.0-5.0); HEMATOCRIT 35.1 % (37.0-47.0); HEMOGLOBIN 11.1 g/dL (12.5-16.0); LYMPH# 1.86 K/mm3 (1.50-4.00); MEAN CELL VOLUME 84 fl (78-100); MEAN CORPUSCULAR HEMOGLOBIN 27 pg (27-31); MEAN CORPUSCULAR HGB CONC 32 g/dL (33-37); MEAN PLATELET VOLUME 10.2 fl (7.4-10.4); MONO # 1.27 K/mm3 (0.20-0.80); NEU # 11.65 K/mm3 (1.40-6.50); PLATELET COUNT 201 K/mm3 (130-400); RED BLOOD COUNT 4.16 M/mm3 (4.10-5.30); WHITE BLOOD COUNT 14.9 K/mm3 (4.8-10.8)
[2024-09-28 05:55] LABS: ALBUMIN 2.9 g/dL (3.4-4.8)
[2024-09-28 05:56] LABS: CALCIUM 8.8 mg/dL (8.3-10.5)
[2024-09-28 05:57] LABS: TOTAL PROTEIN 6.6 g/dL (6.2-8.1)
[2024-09-28 05:59] LABS: TOTAL BILIRUBIN 0.5 mg/dL (0.2-1.2)
[2024-09-28 07:25] VITALS: BP 118/69
[2024-09-28 14:07] VITALS: BP 115/65
[2024-09-28 19:00] VITALS: BP 116/63; BP_SYST 63
[2024-09-28 23:09] VITALS: BP 100/57
[2024-09-29 03:49] VITALS: BP 115/69
[2024-09-29 07:45] VITALS: BP 111/67
[2024-09-29 11:33] VITALS: BP 109/65
== END 2024-09-29 13:30 | disposition swing bed (61) | DRG 603 ==
LOC: MED/SURG 13:00
PROVIDERS: Nurse Practitioner; ADMIT Family Medicine
DX: L03.116 Cellulitis of left lower limb (principal); N39.0 Urinary tract infection, site not specified; R74.01 Elevation of levels of liver transaminase levels; R53.1 Weakness; R53.81 Other malaise; I10 Essential (primary) hypertension; K21.9 Gastro-esophageal reflux disease without esophagitis; F32.A Depression, unspecified; M81.0 Age-related osteoporosis without current pathological fracture; E55.9 Vitamin D deficiency, unspecified; G35 Multiple sclerosis
CPT/HCPCS: A4314; J2543; J3370; J7030; J7050

== ENCOUNTER 2024-09-29 12:11 | Inpatient (IN) | payer MEDICARE ==
[~2024-09-29] VITALS: Ht 162.6 cm; Wt 64.4 kg
[2024-09-29] MEDS ORDERED: Docusate Sodium 100 MG CAP PO SCH (13:11)
[2024-09-29] MEDS ORDERED: Acetaminophen 325 MG TAB PO PRN (13:15)
[2024-09-29] MEDS ORDERED: Polyethylene Glycol 3350 Powder 17 GM PACKET PO PRN (13:15)
--- NOTE | 2024-09-29 17:05 | NUR ---
WOUND CARE: WOUNDS NOTED ON LEFT HEEL, LEFT MID-CALF, AND LEFT DISTAL CALF. 1. WOUND ON LEFT HEEL IS COMPLETELY COVERED WITH BLACK ESCHAR. CLEANED WITH HIBICLENS AND DEBRISOFT LOLLY. JET LAVAGED WITH STERILE WATER. PATTED DRY WITH 4X4'S. MEASURES 2.5CM LONG X 3CM WIDE. APPLIED NORMLGEL TO SOFTEN ESCHAR, AQUACEL EXTRA, AND MEPILEX BORDER FOAM. PT CHIOMA WELL. DOES NOT SEEM TO HAVE MUCH FEELING IN THIS AREA. 2. LARGE FLUID-FILLED BLISTER ON MID-CALF OPENED UP TODAY. MEASURES 14CM WIDE X 3CM LONG. PICTURES ON CHART.WOUND BED IS BRIGHT PINK AND MOIST. COVERED WITH XEROFORM, AQUACEL EXTRA, OPTILOCK AND SOFT ROLL GAUZE. 3. SMALLER FLUID-FILLED BLISTER ON DISTAL CALF BROKE OPEN TODAY. MEASURES 1.6CM LONG X 1.7CM WIDE. WOUND BED IS BRIGHT PINK AND MOIST. COVERED WITH XEROFORM, AQUACEL EXTRA, OPTILOCK AND SOFT ROLL GAUZE NURSING STAFF WILL CHANGE HEEL DRESSING Q 48 HRS AND CALF DRESSINGS DAILY AND PRN .
--- NOTE | 2024-09-29 18:19 | NUR ---
NO CHANGES IN PT. CONDITION THROUGHOUT THE DAY. WOUNDS TO HEEL AND LOWER LEG DRESSED BY WOUND CARE NURSE TODAY. UP IN CHAIR FOR SUPPER. HEEL PROTECTORS APPLIED. CHANGED TO SWB STATUS TODAY.
[2024-09-29] MEDS ORDERED: Albuterol 90 MCG/PUFF MDI IH PRN (19:00)
--- NOTE | 2024-09-29 19:30 | NUR ---
Dr. Gonsalez notified of patients temperature of 101.6. No new orders at this time. HS meds along with tylenol for fever reviewed and taken several at a time. Patient denies pain. Drank 100% of ensure. SCD to right leg. Alert and oriented.
[2024-09-29 20:30] VITALS: BP 124/67
[2024-09-29] MEDS ORDERED: Gabapentin 300 MG CAP PO SCH (21:00)
[2024-09-29] MEDS ORDERED: Doxepin 25 MG CAP PO SCH (21:00)
[2024-09-29] MEDS ORDERED: levETIRAcetam 500 MG TAB PO SCH (21:00)
[2024-09-29] MEDS ORDERED: Ciprofloxacin 250 MG TAB PO SCH (21:00)
--- NOTE | 2024-09-30 05:01 | NUR ---
Patient has been resting with eyes closed.
[2024-09-30 05:46] LABS: BASO # 0.03 K/mm3 (0.02-0.10); EOS # 0.68 K/mm3 (0.04-0.40); HEMATOCRIT 34.4 % (37.0-47.0); HEMOGLOBIN 10.7 g/dL (12.5-16.0); MEAN CELL VOLUME 84 fl (78-100); MEAN CORPUSCULAR HEMOGLOBIN 26 pg (27-31); MEAN CORPUSCULAR HGB CONC 31 g/dL (33-37); MEAN PLATELET VOLUME 9.7 fl (7.4-10.4); MONO # 1.11 K/mm3 (0.20-0.80); NEU # 7.01 K/mm3 (1.40-6.50); PLATELET COUNT 264 K/mm3 (130-400); RED CELL DISTRIBUTION WIDTH 13.2 % (11.5-14.5); WHITE BLOOD COUNT 11.3 K/mm3 (4.8-10.8)
[2024-09-30 05:59] LABS: ALBUMIN 2.8 g/dL (3.4-4.8)
[2024-09-30 06:01] LABS: CALCIUM 8.9 mg/dL (8.3-10.5)
[2024-09-30 06:02] LABS: TOTAL PROTEIN 6.5 g/dL (6.2-8.1)
[2024-09-30 06:04] LABS: TOTAL BILIRUBIN 0.5 mg/dL (0.2-1.2)
--- NOTE | 2024-09-30 08:00 | NUR ---
DR VALLE IN ROOM TO OBSERVE LEFT CALF WOUNDS DURING DRESSING CHANGE
[2024-09-30 08:20] VITALS: BP 111/64
--- NOTE | 2024-09-30 08:21 | NUR ---
WOUND CARE: CHANGED DRESSINGS ON THE 2 OPEN BLISTERS ON LEFT CALF. NOTED MODERATE AMOUNT OF SEROSANG DRAINAGE. CLEANED WITH VASHE. APPLIED COLLAGEN SHARMILA TO WOUND BEDS, COVERED WITH AQUACEL EXTRA AND OPTILOCK, SECURED WITH SOFT ROLL GAUZE AND PAPER TAPE. DISTAL WOUND IS DARKER RED IN COLOR WITH A SMALL AREA OF BLACK IN PROXIMAL MEDIAL CORNER. SEE PICTURES. THE MOST PROXIMAL WOUND IS AN OPEN BLISTER WITH COMPLETELY PINK WOUNDBED . PT CHIOMA WELL. DENIES ANY PAIN WITH DRESSING CHANGE.
[2024-09-30] MEDS ORDERED: Citalopram 20 MG TAB PO SCH (09:00)
[2024-09-30] MEDS ORDERED: Cyanocobalamin (Vit B-12) 1,000 MCG TAB PO SCH (09:00)
[2024-09-30] MEDS ORDERED: amLODIPine 5 MG TAB PO SCH (09:00)
[2024-09-30] MEDS ORDERED: Cholecalciferol (Vit D3) 25 MCG (1,000 Units) TAB PO SCH (09:00)
[2024-09-30] MEDS ORDERED: Sennosides/Docusate 8.6-50 MG TAB PO SCH (09:00)
--- NOTE | 2024-09-30 13:20 | NUR ---
PT ALERT AND ORIENTED X4, PT DOES NOT REPORT ANY PAIN THIS MORNING. PT ASSESSED BY THIS NURSE AND PROVIDER TORI, WOUND CARE DONE BY SCOTT YI. PT RESTING IN BED WITH SUPRA PUBIC CATHETER IN, SOME BLOODY DISCHARGE NOTED AROUND THE CATHETER, PT REPORTS THIS HAPPENS OCCASIONALLY. PT HAS NOT HAD A BM IN SEVERAL DAYS, PROVIDER TORI ORDERED NEW MEDICATION TO ASSIST IN BM PT NOW RESTING IN BED WITH CALL LIGHT IN REACH AND DENIES ANY FURTHER NEEDS
--- NOTE | 2024-09-30 16:24 | NUR ---
PT HAS FEVER OF 102.1 TAKEN ORALLY, PROVIDER VALLE NOTIFIED.
[2024-09-30 16:44] LABS: BASO # 0.04 K/mm3 (0.02-0.10); EOS # 0.39 K/mm3 (0.04-0.40); EOS % 3.3 % (1.0-5.0); HEMATOCRIT 34.3 % (37.0-47.0); HEMOGLOBIN 10.8 g/dL (12.5-16.0); LYMPH# 2.59 K/mm3 (1.50-4.00); MEAN CELL VOLUME 83 fl (78-100); MEAN CORPUSCULAR HEMOGLOBIN 26 pg (27-31); MEAN CORPUSCULAR HGB CONC 32 g/dL (33-37); MEAN PLATELET VOLUME 9.4 fl (7.4-10.4); MONO # 0.88 K/mm3 (0.20-0.80); NEU # 8.06 K/mm3 (1.40-6.50); PLATELET COUNT 289 K/mm3 (130-400); RED BLOOD COUNT 4.14 M/mm3 (4.10-5.30); RED CELL DISTRIBUTION WIDTH 13.1 % (11.5-14.5)
[2024-09-30 16:54] LABS: ALBUMIN 2.9 g/dL (3.4-4.8)
[2024-09-30 16:55] LABS: CALCIUM 8.9 mg/dL (8.3-10.5)
[2024-09-30 16:57] LABS: TOTAL PROTEIN 6.8 g/dL (6.2-8.1)
[2024-09-30 16:58] LABS: TOTAL BILIRUBIN 0.3 mg/dL (0.2-1.2)
[2024-09-30] MEDS ORDERED: Doxycycline Monohydrate 100 MG CAP PO SCH (17:24)
[2024-09-30] MEDS ORDERED: Piperacillin/Tazobactam Sodium 4.5 GM in NS 100 ML IV ONE (17:45)
[2024-09-30 19:33] VITALS: BP 123/66; BP 154/80
[2024-09-30] MEDS ORDERED: Polyethylene Glycol 3350 Powder 17 GM PACKET PO SCH (21:00)
--- NOTE | 2024-09-30 21:00 | NUR ---
Patient resting in bed watching TV. Alert and oriented x 4. Denies pain. HS meds reviewed and takes several at a time without problems. Miralax given in water. Suprapubic cath with small amount dk red and dried red drainage. Cleansed with gentle soap and water, patted dry. No redness noted. Incontinent of small amount loose stool and changed. Barrier cream applied for coccyx redness. Shortly after patient given bed ahmadi and with slight digital assist has large hard stool. Refuses to turn from side to side.
[2024-10-01] MEDS ORDERED: Piperacillin/Tazobactam Sodium 3.375 GM in NS 100 ML IV SCH
--- NOTE | 2024-10-01 04:30 | NUR ---
Patient awakened when INT flushed. States yes to sleeping well this noc.
[2024-10-01 06:47] LABS: BASO # 0.04 K/mm3 (0.02-0.10); EOS # 0.71 K/mm3 (0.04-0.40); EOS % 5.8 % (1.0-5.0); HEMATOCRIT 30.7 % (37.0-47.0); HEMOGLOBIN 9.9 g/dL (12.5-16.0); LYMPH# 2.56 K/mm3 (1.50-4.00); MEAN CELL VOLUME 82 fl (78-100); MEAN CORPUSCULAR HEMOGLOBIN 27 pg (27-31); MEAN CORPUSCULAR HGB CONC 32 g/dL (33-37); MEAN PLATELET VOLUME 10.2 fl (7.4-10.4); MONO # 0.99 K/mm3 (0.20-0.80); NEU # 7.86 K/mm3 (1.40-6.50); PLATELET COUNT 305 K/mm3 (130-400); RED BLOOD COUNT 3.74 M/mm3 (4.10-5.30); RED CELL DISTRIBUTION WIDTH 13.3 % (11.5-14.5); WHITE BLOOD COUNT 12.2 K/mm3 (4.8-10.8)
[2024-10-01 06:52] LABS: ALBUMIN 2.7 g/dL (3.4-4.8)
[2024-10-01 06:53] LABS: CALCIUM 8.8 mg/dL (8.3-10.5)
[2024-10-01 06:55] LABS: TOTAL PROTEIN 6.2 g/dL (6.2-8.1)
[2024-10-01 06:57] LABS: TOTAL BILIRUBIN 0.4 mg/dL (0.2-1.2)
--- NOTE | 2024-10-01 07:00 | NUR ---
REPORT RECEIVED FROM KASSIDY LOPEZ
[2024-10-01 07:10] VITALS: BP 136/73
--- NOTE | 2024-10-01 07:25 | NUR ---
PATIENT RESTING IN BED AT THIS TIME. BED ALARM ON, CALL LIGHT WITHIN REACH
--- NOTE | 2024-10-01 08:15 | NUR ---
PATIENT SITTING IN CHAIR FOR MORNING MEAL; A&Ox4; DENIES PAIN AT THIS TIME. ASSESSMENT COMPLETE. PATIENT EXPRESSES CONCERN ABOUT LEG BEING WARM. THIS NURSE CHECKED TEMERATURE TO THE PATIENTS LLE, LEG IS WARM TO TOUCH BUT NOTED IMPROVEMENT SINCE YESTERDAY. PATIENT DENIES OTHER NEEDS OR COMPLAINTS AT THIS TIME. CHAIR ALARM ON, CALL LIGHT WITHIN REACH.
--- NOTE | 2024-10-01 10:10 | NUR ---
THIS NURSE INTO PATIENTS ROOM TO CHECK ON INFUSING IV MEDICATION. AT BEDSIDE PATIENT STATES HER LEGS ARE DRY AND WOULLD LIKE SOME LOTION. PATIENT ASKS IF CAN BRING LOTION FROM HOME. THIS NURSE TOLD PATIENT THAT IS FINE AND TO LET STAFF KNOW AND WE WOULD HELP HER APPLY. PATIENT DENIES OTHER NEEDS OR COMPLAINTS AT THIS TIME. CHAIR ALARM SUPERVISOR BENZENE REFINING LIGHT WITHIN REACH.
--- NOTE | 2024-10-01 15:28 | NUR ---
PATIENT STATES SHE DOES NOT WANT ANY MORE MIRALAX FOR A "COUPLE DAYS". SHE STATES "I DO NOT WANT TO HAVE ANOTHER BLOWOUT"
--- NOTE | 2024-10-01 16:15 | NUR ---
PATIENT RESTING IN BED WITH EYES CLOSED, EASILY AROUSABLE. PATIENT DENIES NEEDS OR COMPLAINTS AT THIS TIME. BED ALARM ON, CALL LIGHT WITHIN REACH
[2024-10-01 19:15] VITALS: BP 120/67
--- NOTE | 2024-10-01 20:50 | NUR ---
PT RESTING IN BED WATCHING TV. DENIES PAIN, NAUSEA OR VOMITING. REPORTS SOME SOB AT TIMES, BUT NO COUGH. WAS ABLE TO HAVE SEVERAL SUCCESSFUL BOWEL MOVEMENTS TODAY AND JUST GOT OFF THE BED LUZ SO WOULD LIKE TO HOLD STOOL SOFTENERS TONIGHT. REPORTS WORSENED NUMBNESS IN L LEG. DRESSING CLEAN, DRY AND INTACT. ALERT AND ORIENTED.
[2024-10-02 07:15] LABS: BASO # 0.05 K/mm3 (0.02-0.10); EOS # 0.91 K/mm3 (0.04-0.40); EOS % 8.3 % (1.0-5.0); HEMATOCRIT 31.1 % (37.0-47.0); LYMPH# 2.51 K/mm3 (1.50-4.00); MEAN CELL VOLUME 82 fl (78-100); MEAN CORPUSCULAR HEMOGLOBIN 26 pg (27-31); MEAN CORPUSCULAR HGB CONC 32 g/dL (33-37); MEAN PLATELET VOLUME 9.6 fl (7.4-10.4); MONO # 1.05 K/mm3 (0.20-0.80); NEU # 6.42 K/mm3 (1.40-6.50); PLATELET COUNT 341 K/mm3 (130-400); RED BLOOD COUNT 3.79 M/mm3 (4.10-5.30); RED CELL DISTRIBUTION WIDTH 13.3 % (11.5-14.5)
[2024-10-02 07:40] VITALS: BP 106/68
--- NOTE | 2024-10-02 08:15 | NUR ---
A&Ox4, RA, no c/o pain. 2 assist with sit to stand from bed to shower chair. Max assist with cares during shower. 2 assist with sit to stand from shower chair to chair. Tolerated it well. Dressing changed, per written and verbal orders by wound care. 22g IV to left FA, flushed. Independent with brushing hair and oral cares. Swallowed pills whole with water. Reports she slept well last night. Last BM 10/02/24. Chair in locked position. Call light within reach.
--- NOTE | 2024-10-02 15:36 | NUR ---
BETHANY from Dr. Nolen to continue use of left FA 22ga INT. Patient unable to tolerate new INT at this time.
[2024-10-02 19:15] VITALS: BP 127/69
--- NOTE | 2024-10-02 20:20 | NUR ---
PT A&OX4. LUNGS CLEAR. UP WITH SIT TO STAND OR LYNDSEY LIFT. ABD SOFT AND NON TENDER. DENIES PAIN. SUPRAPUBIC CATHETER INTACT AND DRAINING WITHOUT DIFFICULTY. PT STATES ROOM IS HOT AND ROOM TEMPRTURE LOWERED, ONE BLANKET REMOVED AND SOCKS REMOVED.
--- NOTE | 2024-10-03 07:00 | NUR ---
RESUMED CARE FROM KASSIDY THORNTON.
[2024-10-03 07:03] LABS: ALBUMIN 2.8 g/dL (3.4-4.8)
[2024-10-03 07:04] LABS: CALCIUM 8.8 mg/dL (8.3-10.5)
[2024-10-03 07:05] LABS: TOTAL PROTEIN 6.6 g/dL (6.2-8.1)
[2024-10-03 07:07] LABS: TOTAL BILIRUBIN 0.4 mg/dL (0.2-1.2)
[2024-10-03 07:41] VITALS: BP 118/67
[2024-10-03] MEDS ORDERED: Piperacillin/Tazobactam Sodium 4.5 GM in NS 100 ML IV SCH (08:00)
--- NOTE | 2024-10-03 08:15 | NUR ---
PHARMACY SUGGETS INCREASE IN ZOSYN DOSAGE. VAMSHI PIKE NOTIFIED AND NEW ORDER OBTAINED.
--- NOTE | 2024-10-03 08:40 | NUR ---
PATIENT SUPINE IN BED UPON ARRIVAL TO ROOM. DENIES ANY CURRENT PAIN. AM MEDICATIONS PROVIDED. IV TO RIGHT WRIST PATENT, ZOSYN RUNNING AT 25ML/HR. DRESSINGS IN PLACE TO LLE AND LEFT HEEL. LLE ELEVATED, BOOTIES IN PLACE TO BILATERAL FEET. REPORTS MULTIPLE BOWEL MOVEMENTS, BOWEL MEDICATIONS CHANGED TO PRN PER VAMSHI PIKE. PATIENT REMAINS IN BED, SUPINE, ALARMED, CALL LIGHT WITHIN REACH.
[2024-10-03] MEDS ORDERED: Sennosides/Docusate 8.6-50 MG TAB PO PRN (09:02)
[2024-10-03] MEDS ORDERED: Docusate Sodium 100 MG CAP PO PRN (09:02)
--- NOTE | 2024-10-03 10:02 | NUR ---
PCT CRYSTAL REPORTS IV WITH PULLED DURING POSITION CHANGING IN BED.
--- NOTE | 2024-10-03 18:44 | NUR ---
REPORT TO AMEENA EDMOND.
[2024-10-03 19:00] VITALS: BP 139/69
--- NOTE | 2024-10-03 19:00 | NUR ---
Report received from Marci Gayle RN. Patient rests supine in bed watching TV. IV Zosyn infusing at 25 ML/HR. Site patent to LFA. A/O x4. Denies pain, SOA. states occasional cough. Assessment completed. Pubic cath patent to DD with clear yellow urine in bag. SCD's in place to BLE. +3 edema to LLE. Patient denies questions, wants or needs at this time. Bed alarm on. Call light in reach.
--- NOTE | 2024-10-04 04:18 | NUR ---
IV Carly completed. Rests quietly. Denies wants or needs at this time.
--- NOTE | 2024-10-04 07:04 | NUR ---
Report to Maura YI.
[2024-10-04 07:26] VITALS: BP 120/69
--- NOTE | 2024-10-04 09:57 | NUR ---
PATIENT'S IV WAS INFILTRATING IN RIGHT FOREARM. IV SITE CHANGED TO LEFT FOREARM AND ANTIBIOTICS STARTED. MOISTURE, REDNESS AND IRRITATION NOTED IN PATIENT'S GROIN AREA WHERE BRIEF IS LOCATED. SINCE PATIENT HAS A SUPRAPUBIC CATHETER AND IS CONTINENT OF BOWEL, BRIEF REMOVED AND AREA CLEANED AND DRIED. WILL LEAVE BRIEF OFF AT THIS TIME. PATIENT DENIES PAIN WHEN ASKED.
[2024-10-04 19:39] VITALS: BP 132/69
--- NOTE | 2024-10-04 20:00 | NUR ---
Report received from Maura YI. Resting supine in bed. IV Zosyn completed. INT flushed easily with NS. A/O x4. Denies pain. Assessment completed. HS medications taken whole without difficulty. Staff in to reposition Q 2 hrs and PRN. Denies questions, wants or needs at this time.
--- NOTE | 2024-10-05 06:03 | NUR ---
AM medication taken. Resting well. Denies wants or needs at this time.
--- NOTE | 2024-10-05 06:56 | NUR ---
Report to Maura YI.
[2024-10-05 07:00] VITALS: BP 128/72
--- NOTE | 2024-10-05 11:23 | NUR ---
LEFT LOWER LEG WOUNDS CLEANED AND DRESSINGS APPLIED. SEE PROVIDER NOTE FROM Scout CAREY APRN FOR MEASUREMENTS AND WOUND DESCRIPTION. PICTURES TAKEN TODAY
[2024-10-05 19:40] VITALS: BP 134/64
--- NOTE | 2024-10-05 20:34 | NUR ---
PT A&OX4. UP WITH SIT TO STAND OR LYNDSEY LIFT. LUNGS CLEAR. ABD SOFT AND NON TENDER. MILKY DISCHARGE NOTED TO PERIAREA. AREA CLEANED AND DRIED. PT REPOSITIONED AT THIS TIME. DENIES PAIN.
[2024-10-06 07:10] LABS: BASO # 0.04 K/mm3 (0.02-0.10); EOS # 0.59 K/mm3 (0.04-0.40); EOS % 5.2 % (1.0-5.0); HEMOGLOBIN 10.8 g/dL (12.5-16.0); LYMPH# 2.72 K/mm3 (1.50-4.00); MEAN CELL VOLUME 82 fl (78-100); MEAN CORPUSCULAR HEMOGLOBIN 26 pg (27-31); MEAN CORPUSCULAR HGB CONC 32 g/dL (33-37); MEAN PLATELET VOLUME 9.3 fl (7.4-10.4); MONO # 0.97 K/mm3 (0.20-0.80); PLATELET COUNT 425 K/mm3 (130-400); RED BLOOD COUNT 4.16 M/mm3 (4.10-5.30); RED CELL DISTRIBUTION WIDTH 13.4 % (11.5-14.5); WHITE BLOOD COUNT 11.3 K/mm3 (4.8-10.8)
[2024-10-06 07:16] VITALS: BP 118/67
[2024-10-06 07:23] LABS: CALCIUM 9.3 mg/dL (8.3-10.5)
[2024-10-06 07:24] LABS: TOTAL PROTEIN 7.2 g/dL (6.2-8.1)
[2024-10-06 07:26] LABS: TOTAL BILIRUBIN 0.3 mg/dL (0.2-1.2)
--- NOTE | 2024-10-06 13:02 | NUR ---
VERIFIED IV INFUSION RATE WITH APRN. LAN SOLU-MEDEROL TO RUN AT 125ML/HR PER PROVIDER.
--- NOTE | 2024-10-06 18:37 | NUR ---
0730 This nurse and Valente Wagner assited pt with a brief change. Pt has a suprapubic don, clear yellow urine. 1230 Precia H. started a new IV in ordered for IV solumedrol. IV placed in the R forearm 22g. Pt has left lower extremity has multiple wounds. Wound orders have been changed every 48 hrs unless soiled. Pt uses sit to stand lift, to transfer. Pt used commode two times today. 1340 pt used commode pt had a medium BM. Pts don drained 260ml. Pt attended a swing bed meeting. Pt to re evaluate next week.
[2024-10-06 19:15] VITALS: BP 107/55
[2024-10-06] MEDS ORDERED: Miconazole 2% Topical Powder BOTTLE TP SCH (21:00)
[2024-10-07 07:15] VITALS: BP 126/75
--- NOTE | 2024-10-07 09:11 | NUR ---
Pt sitting up in bed. Reports feeling well. States she is able to move leg more after IV infusion yeterday. Denies pain. Heel protectors on. Catheter draining yellow clear urine. Denies pain. Denies needs. Call light in reach
[2024-10-07 19:58] VITALS: BP 116/67
--- NOTE | 2024-10-08 07:00 | NUR ---
REPORT RECEIVED FROM KASSIDY RICH
[2024-10-08 07:28] VITALS: BP 116/66
--- NOTE | 2024-10-08 07:55 | NUR ---
PATIENT SITTING UP IN BED AT THIS TIME, DENIES PAIN, NEEDS OR COMPLAINTS AT THIS TIME. ASSESSMENT COMPLETE. BED ALARM ON, CALL LIGHT WITHIN REACH
[2024-10-08 19:00] VITALS: BP 119/66
--- NOTE | 2024-10-08 19:00 | NUR ---
REPORT GIVEN TO AMEENA EDMOND RN
--- NOTE | 2024-10-08 20:20 | NUR ---
Report received from Akbar YI. Patient rests in bed with eyes closed. Awakens for HS medications and vital signs. A/O x4. Denies pain. HS medications taken a few at a time without difficulty. Assessment completed. METER READER CHIEF's advised would like to use bed ahmadi. Bed alarm on. Call light in reach.
--- NOTE | 2024-10-08 21:15 | NUR ---
L calf dressing leaking yellow drainage on pillow. Old gauze and optilock removed. New optilock applied, covered with gauze wrap. Heel protectors on. L leg elevated on pillow. Repositioned patient to R side.
--- NOTE | 2024-10-09 05:36 | NUR ---
Rested well. Repositioned Q 2 hours by staff. Denies pain. AM medication taken Denies wants or needs at this time.
--- NOTE | 2024-10-09 06:48 | NUR ---
[facility]
--- NOTE | 2024-10-09 07:00 | NUR ---
REPORT RECEIVED FROM AMEENA EDMOND
--- NOTE | 2024-10-09 07:15 | NUR ---
PATIENT SITTING UP IN BED AT THIS TIME, DENIES PAIN, NEEDS OR COMPLAINTS AT THIS TIME. BED ALARM ON, CALL LIGHT WITHIN REACH.
[2024-10-09 08:47] VITALS: BP 136/74
--- NOTE | 2024-10-09 10:15 | NUR ---
PATIENT REQUESTS TO HAVE SUPERPUBIC CATHETER CHANGED AT THIS TIME. CATHETER CHANGED. 20FR IN PALCE WITH 10ML INSTILLED IN [place]. PATIENT TOLERATED PROCEDURE WELL.
[2024-10-09 19:00] VITALS: BP 113/64
--- NOTE | 2024-10-09 19:17 | NUR ---
REPORT GIVEN TO KASSIDY RICH
[2024-10-10 07:00] VITALS: BP 137/78
--- NOTE | 2024-10-10 07:55 | NUR ---
PATIENT SITTING UP IN BED AT THIS TIME. A&Ox4, DENIES PAIN. PATIENT REQUESTS TO START IV MEDS NOW. PATIENT DENIES OTHER NEEDS OR COMPLAINTS. INT L AC IN PLACE, SUPERPUBIC CATHETER IN PLACE WITH DEPENDENT DRAINAGE BAG. BED ALARM ON, CALL LIGHT WITHIN REACH.
--- NOTE | 2024-10-10 19:30 | NUR ---
REPORT GIVEN TO KASSIDY LOPEZ
[2024-10-10 19:31] VITALS: BP 134/70
--- NOTE | 2024-10-10 20:45 | NUR ---
Patient resting in bed. Awakened for HS meds and all reviewed and taken whole without problems. Patient alert and oriented x 4. Reports minimal pain to LLE at this time. BLE elevated on pillow and heel protectors on.
[2024-10-11 07:38] VITALS: BP 152/77
--- NOTE | 2024-10-11 09:15 | NUR ---
PT SITTING UP IN BED. A/O X 4, NO DISTRESS NOTED. PT HAS HEEL SLIPPERS ON CURRENLTY. LLE ELEVATED, REPOSITIONED FOR HIGHER ELEVATION PER REQUEST. CALL LIGHT WITHIN REACH. DENEIES ANY OTHER NEEDS AT THIS TIME.
--- NOTE | 2024-10-11 13:19 | NUR ---
REPORT TO KASSIDY PEREYRA. NOTIFIED OF DRESSING CHANGE STILL NEEDING COMPLETED.
[2024-10-11 19:40] VITALS: BP 103/62
[2024-10-12 07:00] VITALS: BP 109/64
--- NOTE | 2024-10-12 08:00 | NUR ---
PT IS SITTING UP IN BED, AWAITING BREAKFAST.
--- NOTE | 2024-10-12 09:00 | NUR ---
[id number] THIS NURSE PROVIDED SHOWER.
[2024-10-12 11:38] VITALS: BP 110/63
--- NOTE | 2024-10-12 12:47 | NUR ---
WOUND CARE: PT WAS SEEN BY WOUND CARE TEAM TODAY. MEASUREMENTS AND PICTURES TAKEN. SEE PROVIDER NOTE FROM Scout CAREY APRN.
[2024-10-12 19:00] VITALS: BP 111/68
[2024-10-13 06:22] LABS: BASO # 0.01 K/mm3 (0.02-0.10); EOS # 0.52 K/mm3 (0.04-0.40); EOS % 3.6 % (1.0-5.0); HEMATOCRIT 37.7 % (37.0-47.0); HEMOGLOBIN 11.7 g/dL (12.5-16.0); LYMPH# 3.64 K/mm3 (1.50-4.00); MEAN CELL VOLUME 83 fl (78-100); MEAN CORPUSCULAR HEMOGLOBIN 26 pg (27-31); MEAN CORPUSCULAR HGB CONC 31 g/dL (33-37); MEAN PLATELET VOLUME 9.5 fl (7.4-10.4); MONO # 1.08 K/mm3 (0.20-0.80); NEU # 8.86 K/mm3 (1.40-6.50); PLATELET COUNT 410 K/mm3 (130-400); RED BLOOD COUNT 4.56 M/mm3 (4.10-5.30); RED CELL DISTRIBUTION WIDTH 14.4 % (11.5-14.5); WHITE BLOOD COUNT 14.3 K/mm3 (4.8-10.8)
[2024-10-13 06:29] LABS: ALBUMIN 2.9 g/dL (3.4-4.8)
[2024-10-13 06:30] LABS: CALCIUM 8.6 mg/dL (8.3-10.5)
[2024-10-13 06:33] LABS: TOTAL BILIRUBIN 0.3 mg/dL (0.2-1.2)
[2024-10-13 07:42] VITALS: BP 135/69
[2024-10-13 19:00] VITALS: BP 103/64
[2024-10-14 07:00] VITALS: BP 114/74
--- NOTE | 2024-10-14 08:00 | NUR ---
THIS NURSE ASSESSED PT. WE DISCUSSED PTS PLAN FOR THE DAY. PTS WILL BE VISITNG BY 1100. PT REQUSTED TO REMIAN IN BED FOR BREAKFAST. THIS NURSE AND PT AGREED TO GET DRESSED AND TRANSFER TO WHEELCHAIR BEFORE LUNCH. PT DENIES ANY NEEDS.
[2024-10-14 19:00] VITALS: BP 116/70
--- NOTE | 2024-10-14 20:53 | NUR ---
Report received from Ramiro YI. Patient rests in bed on R side. A/O x4. Denies pain. Staff in to repositon Q 2 hours and PRN. Assessment completed. HS medications taken whole without difficulty. Groin folds, reddened, Nystatin powder applied. Supra-pubic cath to DD with clear yellow urine in bag. Denies questions, wants or needs at this time. Bed alarm on. Call light in reach.
--- NOTE | 2024-10-15 05:13 | NUR ---
Rested well per her report. Staff in to reposition Q 2 hours. Denies pain or needs. AM medication taken whole without difficulty.
--- NOTE | 2024-10-15 06:52 | NUR ---
Report to Ruby YI.
[2024-10-15 07:24] VITALS: BP 119/75
--- NOTE | 2024-10-15 07:59 | NUR ---
PT. DENIES ANY NEEDS OR CONCERNS THIS AM. STATES WE ARE TRYING TO GET INSURANCE APPROVAL FOR HER TO STAY LONGER. FEELS THAT SHE NEEDS TO STAY LONGER AND CONTINUE TO IMPROVE.
--- NOTE | 2024-10-15 18:28 | NUR ---
PT. INSURANCE APPROVES PT. TO STAY UNTIL NEXT WEEK. NO CHANGES IN CONDITION THROUGHOUT SHIFT.
[2024-10-15 19:20] VITALS: BP 113/71
--- NOTE | 2024-10-15 21:00 | NUR ---
Report received from Ruby YI. Patient rests in bed. A/O x4. Denies pain or questions at this time. Assessment completed. Staff in to reposition q 2hours. Bed alarm on, Call light in reach.
--- NOTE | 2024-10-16 05:46 | NUR ---
Rested well without complaint. Repositioned Q 2 hours and PRN. AM medication taken po without difficulty.
--- NOTE | 2024-10-16 06:44 | NUR ---
Report to Ruby YI.
[2024-10-16 07:06] VITALS: BP 103/63
--- NOTE | 2024-10-16 07:28 | NUR ---
PT. DENIES ANY NEEDS OR CONCERNS THIS AM.
--- NOTE | 2024-10-16 18:53 | NUR ---
PT. UP IN CHAIR MOST OF THE DAY. MOVED TO ROOM 302 FOR EASIER BATHROOM ACCESS TODAY. ABLE TO GET ON TOILET WITH STAFF ASSIST. NO CHANGES IN CONDITION THROUGHOUT THE DAY.
[2024-10-16 19:00] VITALS: BP 122/72
--- NOTE | 2024-10-16 21:30 | NUR ---
Report received at shift change by Ruby YI. Patient rests supine in bed. Pulled up in bed by DATABASE TESTER and this nurse. A/O x4. Denies pain. Assessment completed. HS medications taken whole without difficulty. Dressing change done at this time. Old dressings removed from L heel and L calf. Moderate amount of drainage noted to calf area. Heel dry. Cleansed areas with hibiclens and patted dry. New dressings applied per wound care guidelines. Tolerated well. DATABASE TESTER assisted with holding L leg during dressing change. Patient denies questions wants or needs at this time.
--- NOTE | 2024-10-17 05:33 | NUR ---
Rested well through the night. Repostioned by staff Q 2 hrs and PRN. Benitez patent to DD with clear pale urine in bag. AM medication taken.
[2024-10-17 07:00] VITALS: BP 107/66
--- NOTE | 2024-10-17 07:03 | NUR ---
Report to Frida YI
--- NOTE | 2024-10-17 07:14 | NUR ---
report recieved from Corrina LINDQUIST
--- NOTE | 2024-10-17 17:41 | NUR ---
pt sitting in wheelchair eating dinner. pt reports no pain at this time. pt is able to take medication without difficulty. no complaints or needs at this time.
--- NOTE | 2024-10-17 18:45 | NUR ---
REPORT GIVEN TO FELI LINDQUIST
[2024-10-17 19:20] VITALS: BP 118/70
--- NOTE | 2024-10-17 20:30 | NUR ---
Report received from Frida YI. Patient rests supine in bed watching TV. A/Ox4. Denies pain, SOA or cough. Surapubic cath patent to DD with clear, pale urine in bedside drainage bag. Dressings to L heel and L calf CDI. HS medications taken whole without difficulty. Patient reports pivoting with x1 person assist today to chair and toilet. Pleased with her progress. Assessment completed. Denies questions, wants or needs at this time. Staff in to reposition Q2 hours and PRN. Bed alarm on. Call light in reach.
[2024-10-18 07:00] VITALS: BP 111/68
--- NOTE | 2024-10-18 07:19 | NUR ---
Report to Maura YI.
--- NOTE | 2024-10-18 19:26 | NUR ---
Report received from Maura YI. Patient resting supine in bed, watching TV. A/O x4. Denies pain. Suprapubic cath patent to DD. Clear, pale urine in bag. Dressing to LLE D/I. LLE elevated on pillow with heel protectors in place. Assessment completed. Denies questions, wants or needs at this time. Bed alarm on. Call light in reach.
[2024-10-18 20:26] VITALS: BP 121/73
--- NOTE | 2024-10-19 05:44 | NUR ---
Repositioned Q 2 hours by staff. Cath patent to DD with clear yellow urine in bag. Denies pain. AM medication taken without difficulty.
--- NOTE | 2024-10-19 06:56 | NUR ---
Report to Leyda YI.
[2024-10-19 07:15] VITALS: BP 108/67
--- NOTE | 2024-10-19 09:21 | NUR ---
PT PRESSED CALL LIGHT AND REPORTED SHE HAD FINISHED HER BREAKFAST. PT IS SITTING UP IN HER MOTORIZED CHAIR. PT ATE 100%. CALL LIGHT WITHIN REACH.
--- NOTE | 2024-10-19 11:15 | NUR ---
THIS NURSE CALLED POST TENSIONING IRONWORKER HELPER, LEFT A VOICE MAIL. INQUIRED ABOUT PTS NUTRITION SUPPLEMENT ORDERS FOR CLARIFICATION.
[2024-10-19] MEDS ORDERED: Oseltamivir 75 MG CAP PO SCH (13:24)
[2024-10-19] MEDS ORDERED: Oseltamivir 30 MG CAP PO SCH (13:45)
--- NOTE | 2024-10-19 16:24 | NUR ---
WOUND CARE: REMOVED EXISTING DRESSINGS ON LEFT CALF AND LEFT HEEL. CLEANED ALL WOUNDS WITH HIBICLENS USING A DEBRISOFT LOLLY. JET LAVAGED WITH STERILE WATER AND PATTED DRY WITH 4X4'S. SHARP DEBRIDEMENT DONE BY Scout CAREY APRN. PT CHIOAM WELL WITHOUT LIDOCAINE. SEE PROVIDER NOTE FOR WOUND MEASUREMENTS. MOST SUPERIOR WOUND ON LEFT CALF HAS BLOODY DRAINAGE, 15% ESCHAR, 30% GRANULATION, AND 55% SLOUGH. THIS WOUND MEASURES 10.5CM W X 2.2CM L X 0.2CM D. APPLIED IODOSORB TO SLOUGH, AND NORMLGEL TO THE ESCHAR. COVERED WITH AQUACEL EXTRA AND OPTILOCK. APPLIED NORMLGEL TO THE OTHER ESCHAR AREAS ON THE CALF, AND COVERED WITH AQUACEL EXTRA AND OPTILOCK. ALSO APPLIED NORMLGEL TO THE LEFT HEEL ESCHAR, COVERED WITH AQUACEL EXTRA AND MEPILEX BORDER FOAM 4X4. THE CALF DRESSINGS WERE SECURED WITH A 4 INCH SOFT ROLL AND PAPER TAPE. PERIWOUND IS MUCH LESS REDDENED AND EDEMA HAS RESOLVED.
--- NOTE | 2024-10-19 17:48 | NUR ---
PT TRANSFERRED WITH 1:1 ASSIST IN THE BATHROOM TODAY. PT PARTICIPATED IN THERAPIES. LABS SCHEDULED TOMORROW.
[2024-10-19 19:00] VITALS: BP 114/73
--- NOTE | 2024-10-19 19:22 | NUR ---
Report received from Leyda YI. Patient sitting up in mobilized W/C. A/O x4. Denies pain. Denies SOA or cough. Assessment completed. Wanting to go to bed at this time. HAND BINDERY ASSEMBLY WORKER's notified. Clarification per food and beverage operations manager notes. Patient is to have Ensure BID at 10& HS and Jefe with drink of choice at lunch and supper. HAND BINDERY ASSEMBLY WORKER's notified.
[2024-10-20 05:54] LABS: BASO # 0.02 K/mm3 (0.02-0.10); EOS # 0.45 K/mm3 (0.04-0.40); EOS % 4.5 % (1.0-5.0); HEMATOCRIT 35.9 % (37.0-47.0); HEMOGLOBIN 11.3 g/dL (12.5-16.0); LYMPH# 2.82 K/mm3 (1.50-4.00); MEAN CELL VOLUME 82 fl (78-100); MEAN CORPUSCULAR HEMOGLOBIN 26 pg (27-31); MEAN CORPUSCULAR HGB CONC 32 g/dL (33-37); MEAN PLATELET VOLUME 9.8 fl (7.4-10.4); MONO # 1.07 K/mm3 (0.20-0.80); NEU # 5.67 K/mm3 (1.40-6.50); PLATELET COUNT 197 K/mm3 (130-400); RED CELL DISTRIBUTION WIDTH 14.9 % (11.5-14.5); WHITE BLOOD COUNT 10.1 K/mm3 (4.8-10.8)
[2024-10-20 06:03] LABS: ALBUMIN 3.2 g/dL (3.4-4.8)
[2024-10-20 06:05] LABS: CALCIUM 9.2 mg/dL (8.3-10.5)
[2024-10-20 06:06] LABS: TOTAL PROTEIN 6.4 g/dL (6.2-8.1)
[2024-10-20 06:08] LABS: TOTAL BILIRUBIN 0.3 mg/dL (0.2-1.2)
--- NOTE | 2024-10-20 06:54 | NUR ---
Report to Leyda YI.
[2024-10-20 07:41] VITALS: BP 114/70
--- NOTE | 2024-10-20 09:11 | NUR ---
0800 PT IS EATING IN BED THIS AM. PT IS GETTING A SHOWER TODAY. PT IS SCHEDULED TO BE DISCHARGED TODAY.
[2024-10-20] MEDS ORDERED: OSELTAMIVIR PHO30 MG PO (12:10)
--- NOTE | 2024-10-20 12:15 | NUR ---
Multidisciplinary rounds complete. Pt and family in agreeance for discharge tonight. Pt given and signs [facility] form. Pt and family chose to waive 2 day notice and discharge today. Home health set up for patient. Pt first choice agency was [facility]. They are currently not accepting patients insurance. Sercives setup with [facility] which is patients second choice. Follow up appts made wiht PCP and wound care
--- NOTE | 2024-10-20 14:24 | NUR ---
PT IS SLATED TO BE DISCHARGED TODAY WHEN FAMILY COMES TO PICK HER UP. PTS WOUND CARE INSTRUCTIONS HAVE BEEN FAXED TO [facility], AND INCLUDED IN PTS TAKE HOME PACKET. PT AND SPOUSE VERBALIZED UNDERSTANDING.
== END 2024-10-20 16:53 | disposition home health service (06) | DRG 603 ==
LOC: MED/SURG 12:11
PROVIDERS: Family Medicine; ADMIT Family Medicine
DX: L03.116 Cellulitis of left lower limb (principal); N39.0 Urinary tract infection, site not specified; F32.A Depression, unspecified; K21.9 Gastro-esophageal reflux disease without esophagitis; I10 Essential (primary) hypertension; M81.0 Age-related osteoporosis without current pathological fracture; E55.9 Vitamin D deficiency, unspecified; R74.01 Elevation of levels of liver transaminase levels; R53.1 Weakness; E87.6 Hypokalemia; R53.81 Other malaise; Z87.891 Personal history of nicotine dependence; G35 Multiple sclerosis
CPT/HCPCS: A6021; A6261; J2543; J2919; J7050

== ENCOUNTER 2024-11-08 12:48 | Inpatient (IN) | payer MEDICARE ==
[~2024-11-08] VITALS: Ht 160 cm; Wt 68.5 kg
[~2024-11-08 12:48] MED LIST changes: -DOCUSATE SODIUM1 TA3 PO; -GOOD NEIGHBOR P1 T33 PO; +OSELTAMIVIR PHO30 MG PO; +SENNA DOCUSATE1 TAB PO; +VITAMIN D350 MC1 PO
[2024-11-08] MEDS ORDERED: Polyethylene Glycol 3350 Powder 17 GM PACKET PO PRN (13:15)
[2024-11-08] MEDS ORDERED: Bisacodyl 5 MG TAB PO PRN (13:15)
[2024-11-08] MEDS ORDERED: Acetaminophen 500 MG TAB PO PRN (13:15)
[2024-11-08 13:24] VITALS: BP 93/54
[2024-11-08] MEDS ORDERED: KLOR-CON M1010 MEQ PO (13:32)
[2024-11-08] MEDS ORDERED: PAIN RELIEF325 M2 PO (13:40)
[2024-11-08] MEDS ORDERED: ACETAMINOPHEN-H1 TA2 PO (13:41)
[2024-11-08] MEDS ORDERED: Sennosides/Docusate 8.6-50 MG TAB PO PRN (14:30)
[2024-11-08] MEDS ORDERED: Acetaminophen 325 MG TAB PO PRN (14:30)
[2024-11-08] MEDS ORDERED: Albuterol 90 MCG/PUFF MDI IH PRN (14:30)
--- NOTE | 2024-11-08 15:15 | NUR ---
Pt arrived via EMS on cart. She was placed in room 204 and transfered to bed. She arrived with brace on LLE which is for femur fracture and notes. Pt does live with her spouse and he is planning on taking her home on discharge from here. She does have 16 mohawk supra pubic. She does have bladder stimulator that is reported in her hx. Per pt and spouse he is changing her catheter when needed at home. She also has MS which complicates her situation as she already struggled and has fallen multiple times. She did not arrive with IV from [facility]. She does have heel protectors in place on bilateral feet along with velcro splint to LLE for femoral distal fx. She has ulceration on distal side of LLE that has xerform and telfa multiple bandaides to bilateral feet that she arrived intact. She is currently Per pt chart she can have brace off for wound changes and is to sleep in boot. on room air.
[2024-11-08 19:00] VITALS: BP 127/75; BP_SYST 75
--- NOTE | 2024-11-08 20:00 | NUR ---
PT RESTING IN BED WATCHING TV. DENIES NEED FOR PAIN MEDS, N/V OR SOB. STATES SHE WAS TOLD AT THE PRIOR FACILITY THAT SHE WOULD BE STARTED ON ORAL ANTIBIOTICS AFTER HER IV ANTIBIOTICS FINISHED TODAY. INFORMED PATIENT OF CARE PLAN AND NOTIFIED PROVIDER IN CASE ORAL ANTIBIOTICS WERE NECESSARY. AGREEABLE TO THIS. GCS 15.
[2024-11-08] MEDS ORDERED: Cholecalciferol (Vit D3) 25 MCG (1,000 Units) TAB PO SCH (21:00)
[2024-11-08] MEDS ORDERED: Gabapentin 300 MG CAP PO SCH (21:00)
[2024-11-08] MEDS ORDERED: levETIRAcetam 500 MG TAB PO SCH (21:00)
[2024-11-08] MEDS ORDERED: Doxepin 25 MG CAP PO SCH (21:00)
--- NOTE | 2024-11-09 05:19 | NUR ---
Patient awakened for am med. States yes to sleeping well this noc.
[2024-11-09 05:42] LABS: BASO # 0.04 K/mm3 (0.02-0.10); EOS # 0.28 K/mm3 (0.04-0.40); EOS % 2.5 % (1.0-5.0); HEMATOCRIT 31.3 % (37.0-47.0); HEMOGLOBIN 9.8 g/dL (12.5-16.0); MEAN CELL VOLUME 81 fl (78-100); MEAN CORPUSCULAR HEMOGLOBIN 25 pg (27-31); MEAN CORPUSCULAR HGB CONC 31 g/dL (33-37); MEAN PLATELET VOLUME 9.2 fl (7.4-10.4); MONO # 1.26 K/mm3 (0.20-0.80); NEU # 6.05 K/mm3 (1.40-6.50); PLATELET COUNT 515 K/mm3 (130-400); RED BLOOD COUNT 3.88 M/mm3 (4.10-5.30); RED CELL DISTRIBUTION WIDTH 16.1 % (11.5-14.5); WHITE BLOOD COUNT 11.3 K/mm3 (4.8-10.8)
[2024-11-09 05:51] LABS: CALCIUM 9.8 mg/dL (8.3-10.5)
[2024-11-09 05:52] LABS: TOTAL PROTEIN 7.3 g/dL (6.2-8.1)
[2024-11-09 05:54] LABS: TOTAL BILIRUBIN 0.3 mg/dL (0.2-1.2)
[2024-11-09 05:58] LABS: MAGNESIUM 1.9 mg/dL (1.60-2.60)
[2024-11-09 07:40] VITALS: BP 115/69
[2024-11-09] MEDS ORDERED: Gabapentin 300 MG CAP PO SCH (08:00)
--- NOTE | 2024-11-09 08:00 | NUR ---
PT ALERT AND ORIENTED X4, PT RESTING IN BED WITH LEFT LEG IMMOBILIZED BY BRACE. PT HAS DISPLACED FEMUR FRACTURE AND IS AWAITING SURGICAL DECISION. PT ASSESSED AND MEDICATIONS DELIVERED WITHOUT COMPLICATION. PT ROLLED AND TURNED WITH ASSISTANCE FROM [facility]. PT NOW RESTING WITH CALL LIGHT IN REACH AND AT BEDSIDE
[2024-11-09] MEDS ORDERED: Cyanocobalamin (Vit B-12) 1,000 MCG TAB PO SCH (09:00)
[2024-11-09] MEDS ORDERED: Citalopram 20 MG TAB PO SCH (09:00)
--- NOTE | 2024-11-09 09:41 | NUR ---
SW met with patient for admission to [facility]. Patients Doug Obrien" ([phone]) at bedside. Patient has been living with her daughter Ibeth ([phone]) and her family prior to admission, but has verbalized that she feels like a "burden" due to Ibeth commitments. Family would assist patient to the bathroom by means of picking her up prior to hospitalization, but is mostly bedbound. She was previously established with [facility], but has only been able to have 1 visit with them. PCP is Dr. Gonsalez and she utilizes [facility] pharmacy for medications with no cost difficulty. Patient and spouse verbalize that she has a Living Will, but do not know exactly where it is at. She is interested in creating a DPOA-HC lisitng her spouse and two out of her three children, but would like to talk with her children prior to completing the form. Patient and family have been talking about possible nursing facility placement for LTC needs, but financially this is a barrier. SW discussed the possibility of going on [facility], but needing to complete a division of assets and provided guidance on how to complete this. She also verbalizes concern over her insurance not letting her stay here long. IDT team to meet with patient and family at 11 to discuss care goals.
--- NOTE | 2024-11-09 10:30 | NUR ---
WOUND TEAM IN TO PROVIDE EVALUATION AND DRESSING CHANGE TO WOUNDS TO LEFT LOWER EXTREMITY, LEFT HEEL, AND LEFT BUTTOCK. MEASUREMENTS AND PHOTOGRAPHS OBTAINED. ALL WOUNDS CLEASNED WITH HIBICLENSE AND JET LAVAGE. DRIED WITH 4X4. TRIAD CREAM AND MEPILEX BORDER FOAM TO LEFT BUTTOCK. COLLAGEN TO MOST PROXIMAL WOUND TO LEFT LOWER EXTREMITY AND COVERED WITH MEPILEX BORDER FOAM. NORMLGEL TO ESCHAR AND ALL OTHER WOUNDS TO LEFT LOWER EXTREMITY COVERED WITH X3 SACRAL MEPILEX.
--- NOTE | 2024-11-09 11:56 | NUR ---
IDT including Beatrice BONDS, nursing and SW met with patient and patients spouse about her wishes/goals of tx and if she would like to be more aggressive with the fx vs. palliative. Patient verbalizes that she would like to pursue a second opinion with possible surgery. Dagoberto verbalizes his agreement with this decision.
[2024-11-09 19:39] VITALS: BP 115/70
--- NOTE | 2024-11-09 20:02 | NUR ---
PT IN BED WITH FAMILY AT BEDSIDE AWAITING TRANSFER TO [facility] FOR A L FEMUR FX TREATMENT. PT IS AWAKE A/OX4 ABLE TO MAKE NEEDS KNOWN. PT DENIES N/V/D AND PAIN AT THIS TIME. PT HAS A L KNEE IMMOBILAZER IN PLACE. PT DENIES FURTHER NEEDS. PT TO BE TRANSFERED TO [facility] BY AMBULANCE.
--- NOTE | 2024-11-09 20:16 | NUR ---
Pt picked up by EMS at 1999. Pt denies any pain after transferring from the bed to the EMS cot. Pt and verbalized understanding about transfer to [facility] room number 330. This nurse gave report to EMS. This nurse called report to Peter Aguilar RN. This RN called when pt departed from [facility] at 2014.
[2024-11-15] MEDS ORDERED: AMANTADINE100 M1 PO (18:46)
[2024-11-15] MEDS ORDERED: ASPIRIN E.C. 8181 MG PO (18:47)
[2024-11-15] MEDS ORDERED: VENELEX OINTM56.7 GM TP (18:48)
[2024-11-15] MEDS ORDERED: CLONAZEPAM0.25 MG PO (18:50)
[2024-11-15] MEDS ORDERED: NOVAPLUS L40 MG/0.4 SQ (18:50)
[2024-11-15] MEDS ORDERED: BREO ELLIPTA 21 EACH IH (18:51)
[2024-11-15] MEDS ORDERED: IPRATROPIUM BROM3 M1 IH (18:52)
== END 2024-11-09 20:15 | disposition short-term general hospital (02) | DRG 533 ==
LOC: MED/SURG 12:48
PROVIDERS: ADMIT Family Medicine
DX: S72.492A Other fracture of lower end of left femur, initial encounter for closed fracture (principal); L89.323 Pressure ulcer of left buttock, stage 3; G35 Multiple sclerosis; I10 Essential (primary) hypertension; F32.A Depression, unspecified; K21.9 Gastro-esophageal reflux disease without esophagitis; D64.9 Anemia, unspecified; G47.00 Insomnia, unspecified; Z66 Do not resuscitate
CPT/HCPCS: A6021; A6248